=== PATIENT | male | born 1945 | race Caucasian/White ===

== ENCOUNTER → 2016-04-10 | Outpatient (CLI) | payer MEDICARE, OTHER ==
[~2016-04-10] MED LIST: 'KLONOPIN0.5 MG PO; 'PARAFON FORTE500 M1 PO; ALAVERT10 M1 PO; AMOXICOT500 MG PO; ATIVAN0.5 MG PO; AUGMENTIN 875875 MG PO; BACTRIM DS 8001 TA1 PO; BAYER ASPIRIN C81 MG PO; CARVEDILOL3.125 MG PO; CIPRO500 MG PO; CIPROFLOXACIN500 MG PO; CLOPIDOGREL75 MG PO; COREG6.25 MG PO; ESKALITH-CR450 MG PO; FERROUS SULFAT325 MG PO; FINASTERIDE5 MG PO; FLOMAX0.4 MG PO; FUROSEMIDE20 M1 PO; KLONOPIN0.5 MG PO; LASIX20 MG PO; LITHOBID300 M1 PO; LOSARTAN POTASS50 MG PO; LOW DOSE ASPIRI81 MG PO; MIRALAX17 GM PO; NAPROSYN500 MG PO; PERCOCET 325 MG1 TA5 PO; PRAVACHOL40 MG PO; PREDNICOT20 MG PO; PROSCAR5 M1 PO; PROZAC40 M1 PO; UROCIT-K10 MEQ PO; VITAMIN D22000 UNIT PO; VITAMIN D50000 I3 PO; WELLBUTRIN SR200 MG PO; WELLBUTRIN100 M1 PO; ZOFRAN4 MG PO; ZOFRAN8 M1 PO
== END | disposition home or self-care (01) ==
LOC: RAD 13:38
DX: M19.021 Primary osteoarthritis, right elbow (principal); M25.511 Pain in right shoulder; M25.521 Pain in right elbow; M25.421 Effusion, right elbow

== ENCOUNTER → 2016-08-21 | Outpatient (CLI) | payer MEDICARE, OTHER | END | disposition home or self-care (01) | LOC: MRI 13:58 | DX: M19.012 Primary osteoarthritis, left shoulder (principal) ==

== ENCOUNTER → 2017-04-16 | Outpatient (CLI) | payer MEDICARE, OTHER ==
[2017-04-16 11:39] LABS: BUN 21 mg/dl (7-24); CREATININE 1.29 mg/dL (0.70-1.30)
== END ==
LOC: LAB 10:27
PROVIDERS: Psychiatry & Neurology Psychiatry
DX: F31.89 Other bipolar disorder (principal)

== ENCOUNTER 2017-06-03 13:49 | Emergency (ER) | payer MEDICARE, OTHER ==
[~2017-06-03] VITALS: Ht 167.6 cm; Wt 90.7 kg
[2017-06-03 14:28] VITALS: BP 101/59
[2017-06-03 14:35] LABS: BASO % 0.3 % (0.0-1.0); EOS # 0.5 10*3/uL (0.0-0.4); EOS % 3.9 % (1.0-4.0); HEMATOCRIT 36.9 % (42.0-52.0); HEMOGLOBIN 11.9 g/dl (14.0-18.0); LYMPH # 1.6 10*3/uL (1.3-4.4); LYMPH % 12.6 % (27.0-41.0); MEAN CORPUSCULAR HGB 29.7 pg (27.0-31.0); MEAN CORPUSCULAR HGB CONC 32.2 g/dl (33.0-37.0); MEAN PLATELET VOLUME 9.8 fl (9.6-12.3); MONO # 0.8 10*3/uL (0.1-1.0); MONO % 6.5 % (3.0-9.0); NEUT # 9.6 10*3/uL (2.3-7.9); NEUT % 76.2 % (47.0-73.0); PLATELET COUNT AUTOMATED 257 10*3/uL (130-400); RED BLOOD COUNT 4.01 10*6/uL (4.50-5.90); RED CELL DISTRI WIDTH 13.1 % (0-14.5); WHITE BLOOD COUNT 12.6 10*3/uL (4.8-10.8)
[2017-06-03] MEDS ORDERED: PROZAC10 MG PO (14:47)
[2017-06-03 14:49] VITALS: BP 92/44
[2017-06-03 14:57] LABS: ALBUMIN 3.7 gm/dl (3.1-4.5); ALKALINE PHOSPHATASE 155 U/L (45-117); BUN 85 mg/dl (7-24); CHLORIDE 101 mmol/L (98-107); CREATININE 4.28 mg/dL (0.70-1.30); POTASSIUM 4.3 mmol/L (3.5-5.1); SGOT/AST 14 IU/L (3-35); SGPT/ALT 22 U/L (12-78); SODIUM 137 mmol/L (136-145)
[2017-06-03 15:02] LABS: ETHYL ALCOHOL < 3.0 mg/dl (<3)
[2017-06-03 15:24] LABS: TROPONIN I 0.02 ng/ml (<0.045)
[2017-06-03 16:14] LABS: BILIRUBIN NEGATIVE (NEGATIVE); BLOOD NEGATIVE (NEGATIVE); CLARITY CLEAR (CLEAR); COLOR YELLOW (YELLOW); GLUCOSE NEGATIVE (NEGATIVE); KETONE NEGATIVE (NEGATIVE); LEUKO ESTERASE NEGATIVE (NEGATIVE); NITRITE NEGATIVE (NEGATIVE); PH 5.5 (5.0-9.0); SPECIFIC GRAVITY 1.015 (1.005-1.030); UROBILINOGEN 0.2 E.U./dl (0.2-1.0)
[2017-06-03 16:22] LABS: BACTERIA 2+; RBC 0-2 rbc/hpf (0-2); URINE AMPHETAMINES < 1000 (1000ng/ml); URINE BARBITURATES < 200 (200ng/ml); URINE BENZODIAZEPINES < 200 (200ng/ml); URINE CANNABINOIDS (THC) < 50 (50ng/ml); URINE COCAINE < 300 (300ng/ml); URINE METHADONE < 300 (300ng/ml); URINE OPIATES < 300 (300ng/ml); URINE PHENCYCLIDINE < 25 (25ng/ml); WBC 0-2 wbc/hpf (0-5)
[2017-06-03 16:33] VITALS: BP 93/37
[2017-06-03 17:07] VITALS: BP 100/41
[2017-06-03 17:33] VITALS: BP 114/36
== END 2017-06-03 15:44 | disposition short-term general hospital (02) ==
LOC: ED 13:49 → EDHOLD 15:13 → ED 15:13 → 4E 15:25 → EDHOLD 15:25 → 4E 15:25 → ED 15:44
PROVIDERS: Emergency Medicine
DX: R53.83 Other fatigue (principal); T56.891A Toxic effect of other metals, accidental (unintentional), initial encounter; R33.9 Retention of urine, unspecified; F32.9 Major depressive disorder, single episode, unspecified; E86.0 Dehydration; N17.9 Acute kidney failure, unspecified; Z98.890 Other specified postprocedural states; Z79.899 Other long term (current) drug therapy; Z88.1 Allergy status to other antibiotic agents; Z88.8 Allergy status to other drugs, medicaments and biological substances; Z79.82 Long term (current) use of aspirin; Y92.9 Unspecified place or not applicable

== ENCOUNTER 2017-07-18 08:34 | Emergency (ER) | payer MEDICARE, OTHER ==
[~2017-07-18] VITALS: Ht 170.1 cm; Wt 83.0 kg
[2017-07-18 09:08] LABS: BASO % 0.8 % (0.0-1.0); EOS # 0.6 10*3/uL (0.0-0.4); EOS % 12.1 % (1.0-4.0); HEMATOCRIT 32.2 % (42.0-52.0); HEMOGLOBIN 10.3 g/dl (14.0-18.0); LYMPH % 19.7 % (27.0-41.0); MEAN CORPUSCULAR HGB 30.4 pg (27.0-31.0); MEAN PLATELET VOLUME 9.1 fl (9.6-12.3); MONO # 0.4 10*3/uL (0.1-1.0); MONO % 8.1 % (3.0-9.0); NEUT # 3.1 10*3/uL (2.3-7.9); NEUT % 58.9 % (47.0-73.0); PLATELET COUNT AUTOMATED 266 10*3/uL (130-400); RED BLOOD COUNT 3.39 10*6/uL (4.50-5.90); RED CELL DISTRI WIDTH 14.6 % (0-14.5); WHITE BLOOD COUNT 5.2 10*3/uL (4.8-10.8)
[2017-07-18 09:17] LABS: ACT PARTIAL THROMBO TIME 24.4 SECONDS (20.8-31.5)
[2017-07-18 09:18] LABS: CREATININE 1.47 mg/dL (0.70-1.30); POTASSIUM 4.2 mmol/L (3.5-5.1)
== END 2017-07-18 09:56 | disposition home or self-care (01) ==
LOC: ED 08:34
PROVIDERS: Emergency Medicine
DX: L50.8 Other urticaria (principal); Z96.651 Presence of right artificial knee joint; Z98.890 Other specified postprocedural states; Z79.899 Other long term (current) drug therapy; Z79.82 Long term (current) use of aspirin; Z88.1 Allergy status to other antibiotic agents; Z88.8 Allergy status to other drugs, medicaments and biological substances

== ENCOUNTER → 2017-07-18 | Outpatient (CLI) | payer MEDICARE, OTHER ==
[~2017-07-18] MED LIST changes: +PROZAC10 MG PO
== END | disposition home or self-care (01) ==
LOC: LAB 09:00
DX: D64.9 Anemia, unspecified (principal)

== ENCOUNTER → 2017-07-21 | Outpatient (CLI) | payer MEDICARE, OTHER ==
[2017-07-21 10:35] LABS: BASO % 0.7 % (0.0-1.0); EOS # 0.6 10*3/uL (0.0-0.4); EOS % 11.2 % (1.0-4.0); HEMATOCRIT 31.7 % (42.0-52.0); HEMOGLOBIN 10.1 g/dl (14.0-18.0); LYMPH % 16.8 % (27.0-41.0); MEAN CELL VOLUME 93.5 fl (80.0-94.0); MEAN CORPUSCULAR HGB 29.8 pg (27.0-31.0); MEAN CORPUSCULAR HGB CONC 31.9 g/dl (33.0-37.0); MEAN PLATELET VOLUME 8.9 fl (9.6-12.3); MONO # 0.5 10*3/uL (0.1-1.0); MONO % 8.3 % (3.0-9.0); NEUT # 3.5 10*3/uL (2.3-7.9); NEUT % 62.6 % (47.0-73.0); PLATELET COUNT AUTOMATED 250 10*3/uL (130-400); RED BLOOD COUNT 3.39 10*6/uL (4.50-5.90); RED CELL DISTRI WIDTH 14.5 % (0-14.5); WHITE BLOOD COUNT 5.7 10*3/uL (4.8-10.8)
[2017-07-21 11:06] LABS: ALBUMIN 3.4 gm/dl (3.1-4.5); CREATININE 1.41 mg/dL (0.70-1.30); FREE T4 1.15 ng/dl (0.76-1.46); POTASSIUM 4.4 mmol/L (3.5-5.1); TOTAL PROTEIN 7.2 gm/dL (6.4-8.2)
[2017-07-21 11:12] LABS: THYROID STIM HORMONE (HS) 1.7 uIU/ml (0.358-4.75)
[2017-07-21 13:55] LABS: VITAMIN D, 25-HYDROXY 41.6 ng/mL (30-100)
== END | disposition home or self-care (01) ==
LOC: LAB 00:20
PROVIDERS: Internal Medicine
DX: E55.9 Vitamin D deficiency, unspecified (principal); E78.2 Mixed hyperlipidemia; E03.9 Hypothyroidism, unspecified; Z13.1 Encounter for screening for diabetes mellitus; Z13.21 Encounter for screening for nutritional disorder; Z13.220 Encounter for screening for lipoid disorders

== ENCOUNTER → 2017-09-30 | Outpatient (CLI) | payer MEDICARE, OTHER ==
[~2017-09-30] MED LIST changes: +ABILIFY10 MG PO; +ABILIFY5 MG PO; +BENZTROPINE MESY2 MG PO; +COGENTIN0.5 MG PO; +FANAPT1 MG PO; +IRON325 M1 PO; +MIRTAZAPINE15 M2 PO; +PROTONIX40 MG PO; +PROZAC20 MG PO; +RA SENNA PLUS1 EACH PO; +RIVASTIGMINE1 EACH T; +WELLBUTRIN XL150 MG PO
[2017-09-30 09:25] LABS: BASO % 0.7 % (0.0-1.0); EOS # 0.3 10*3/uL (0.0-0.4); EOS % 5.1 % (1.0-4.0); HEMATOCRIT 35.9 % (42.0-52.0); HEMOGLOBIN 11.5 g/dl (14.0-18.0); LYMPH # 1.3 10*3/uL (1.3-4.4); LYMPH % 21.8 % (27.0-41.0); MEAN CORPUSCULAR HGB 30.1 pg (27.0-31.0); MEAN PLATELET VOLUME 9.6 fl (9.6-12.3); MONO # 0.6 10*3/uL (0.1-1.0); MONO % 10.2 % (3.0-9.0); NEUT # 3.6 10*3/uL (2.3-7.9); NEUT % 61.9 % (47.0-73.0); PLATELET COUNT AUTOMATED 205 10*3/uL (130-400); RED BLOOD COUNT 3.82 10*6/uL (4.50-5.90); RED CELL DISTRI WIDTH 13.3 % (0-14.5); WHITE BLOOD COUNT 5.9 10*3/uL (4.8-10.8)
[2017-09-30 09:37] LABS: CREATININE 1.43 mg/dL (0.70-1.30); POTASSIUM 4.6 mmol/L (3.5-5.1)
== END | disposition home or self-care (01) ==
LOC: LAB 08:41
PROVIDERS: Internal Medicine
DX: E03.9 Hypothyroidism, unspecified (principal); E78.2 Mixed hyperlipidemia; Z79.899 Other long term (current) drug therapy

== ENCOUNTER 2017-10-04 08:36 | Emergency (ER) | payer MEDICARE, OTHER ==
[~2017-10-04] VITALS: Wt 72.6 kg
--- NOTE | ~2017-10-04 | EKG ---
[place], [place] ELECTROCARDIOGRAM REPORT NAME: RONALDO GARCIA UNIT #: [id number] ROOM: DOCTOR: EPIPHAD DRAFT REPORT BIRTHDATE: [birth year] [facility] Test Date: 2017-10-04 Test Time: 08:53:49 Pat Name: RONALDO GARCIA Department: Room: Gender: M [employer] Supervisor: EKG.ND : 1945 Requested By: SHLOMO LOZADA Order Number: [id number] Reading MD: Edwin Nye MD Measurements Intervals [place] Rate: 75 P: 67 [place]: 183 QRS: 9 QRSD: 121 T: 221 QT: 425 QTc: 475 Interpretive Statements Sinus rhythm Left bundle branch block Electronically Signed On 10-04-2017 14:28:45 PDT by Edwin Nye MD CM:EKGRPT:ELECTROCARDIOGRAM REPORT [id number] SHLOMO IBARRA DRAFT REPORT SHLOMO LOZADA MD
--- NOTE | ~2017-10-04 | PR ---
[place], [place] PROGRESS NOTE NAME: RONALDO GARCIA [facility] #: [id number] UNIT #: [id number] ROOM: DOCTOR: OLVIN MAN MD BIRTHDATE: [birth year] DOS: 10/06/2017 SUBJECTIVE: The patient is still complaining of poor appetite. OBJECTIVE: VITAL SIGNS: Blood pressure 143/76, heart rate 87 beats per minute, breathing 16 times per minute, temperature 98 degrees Fahrenheit. GENERAL APPEARANCE: The patient is alert and oriented x 3, in no visible distress except for generalized weakness. HEENT AND NECK: Exam within normal limits. CARDIOVASCULAR SYSTEM: Heart rate is regular in rate and rhythm. S1 and S2 normally audible. LUNGS: Clear to auscultation. ABDOMEN: Soft, nontender. No obvious organomegaly. Bowel sounds are present. EXTREMITIES: Without significant cyanosis or edema. IMPRESSION: 1. The patient with swallowing dysfunction to be evaluated by speech therapy. 2. Bipolar disorder with manic episodes off and on. The patient's management was changed to now he is on rivastigmine, mirtazapine, Fanapt. 3. Mixed hyperlipidemia, treated with Lipitor. 4. Chronic constipation, being treated with MiraLax. 5. Benign prostatic hypertrophy and urine retention treated with finasteride and Flomax and is asymptomatic. 6. Generalized weakness and adult failure to thrive. The patient working with physical therapy. 7. Moderate aortic stenosis with compensated cardiac function. 8. Poor appetite. I added Ensure supplements to his treatment. LOVIN MAN MD CM:PNTRANS [id number] OLVIN MAN MD 10/07/17 1404 interface
[~2017-10-04 08:36] MED LIST changes: -ABILIFY10 MG PO; -ABILIFY5 MG PO; -BENZTROPINE MESY2 MG PO; -COGENTIN0.5 MG PO; -FANAPT1 MG PO; -IRON325 M1 PO; -MIRTAZAPINE15 M2 PO; -PROTONIX40 MG PO; -PROZAC20 MG PO; -RA SENNA PLUS1 EACH PO; -RIVASTIGMINE1 EACH T; -WELLBUTRIN XL150 MG PO
[2017-10-04 09:08] LABS: BASO % 0.6 % (0.0-1.0); EOS # 0.3 10*3/uL (0.0-0.4); HEMATOCRIT 32.4 % (42.0-52.0); HEMOGLOBIN 10.3 g/dl (14.0-18.0); LYMPH # 1.5 10*3/uL (1.3-4.4); LYMPH % 27.8 % (27.0-41.0); MEAN CELL VOLUME 93.6 fl (80.0-94.0); MEAN CORPUSCULAR HGB 29.8 pg (27.0-31.0); MEAN CORPUSCULAR HGB CONC 31.8 g/dl (33.0-37.0); MEAN PLATELET VOLUME 8.9 fl (9.6-12.3); MONO # 0.7 10*3/uL (0.1-1.0); MONO % 13.2 % (3.0-9.0); NEUT # 2.8 10*3/uL (2.3-7.9); NEUT % 52.2 % (47.0-73.0); PLATELET COUNT AUTOMATED 174 10*3/uL (130-400); RED BLOOD COUNT 3.46 10*6/uL (4.50-5.90); RED CELL DISTRI WIDTH 13.4 % (0-14.5); WHITE BLOOD COUNT 5.3 10*3/uL (4.8-10.8)
[2017-10-04 09:25] LABS: ALBUMIN 3.5 gm/dl (3.1-4.5); CREATININE 1.53 mg/dL (0.70-1.30); POTASSIUM 3.9 mmol/L (3.5-5.1); TOTAL PROTEIN 6.8 gm/dL (6.4-8.2); TROPONIN I 0.016 ng/ml (<0.045)
[2017-10-04 10:40] LABS: ETHYL ALCOHOL < 3.0 mg/dl (<3)
[2017-10-04 11:08] LABS: BILIRUBIN NEGATIVE (NEGATIVE); BLOOD NEGATIVE (NEGATIVE); CLARITY CLEAR (CLEAR); COLOR YELLOW (YELLOW); GLUCOSE NEGATIVE (NEGATIVE); KETONE TRACE (NEGATIVE); LEUKO ESTERASE NEGATIVE (NEGATIVE); NITRITE NEGATIVE (NEGATIVE); SPECIFIC GRAVITY 1.015 (1.005-1.030); UROBILINOGEN 0.2 E.U./dl (0.2-1.0)
[2017-10-04 11:16] LABS: URINE AMPHETAMINES < 1000 (1000ng/ml); URINE BARBITURATES < 200 (200ng/ml); URINE BENZODIAZEPINES < 200 (200ng/ml); URINE CANNABINOIDS (THC) < 50 (50ng/ml); URINE COCAINE < 300 (300ng/ml); URINE METHADONE < 300 (300ng/ml); URINE OPIATES < 300 (300ng/ml)
[2017-10-04 11:17] LABS: URINE PHENCYCLIDINE < 25 (25ng/ml)
[2017-10-04 11:22] LABS: BACTERIA TRACE; MUCOUS TRACE; RBC 0-2 rbc/hpf (0-2); WBC 0-2 wbc/hpf (0-5)
[2017-10-04] MEDS ORDERED: COGENTIN0.5 MG PO (12:12)
[2017-10-04] MEDS ORDERED: PROZAC20 MG PO ×2 (12:12→12:22)
[2017-10-04] MEDS ORDERED: ABILIFY10 MG PO (12:13)
[2017-10-04] MEDS ORDERED: KLONOPIN0.5 MG PO ×2 (12:14→12:26)
[2017-10-04] MEDS ORDERED: IRON325 M1 PO (12:20)
[2017-10-04] MEDS ORDERED: VITAMIN D22000 UNIT PO (12:20)
[2017-10-04] MEDS ORDERED: MIRALAX17 GM PO (12:23)
[2017-10-04] MEDS ORDERED: ABILIFY5 MG PO (12:23)
[2017-10-04] MEDS ORDERED: PROTONIX40 MG PO (12:24)
[2017-10-04] MEDS ORDERED: RA SENNA PLUS1 EACH PO (12:24)
[2017-10-04] MEDS ORDERED: BENZTROPINE MESY2 MG PO (12:25)
[2017-10-04] MEDS ORDERED: WELLBUTRIN XL150 MG PO (12:30)
== END 2017-10-04 12:30 | disposition admitted as inpatient to this hospital (09) ==
LOC: ED 08:36
PROVIDERS: Emergency Medicine
DX: F30.9 Manic episode, unspecified (principal); Z88.1 Allergy status to other antibiotic agents; Z79.899 Other long term (current) drug therapy; Z79.82 Long term (current) use of aspirin

== ENCOUNTER 2017-10-04 11:54 | Inpatient (IN) | payer MEDICARE, OTHER ==
[~2017-10-04] VITALS: Ht 170.1 cm; Wt 72.6 kg
--- NOTE | ~2017-10-04 | WRIGHTHP ---
[place], [place] PATIENT HISTORY AND PHYSICAL EXAM NAME: RONALDO GARCIA [facility] #: [id number] UNIT #: [id number] ROOM: 317 DOCTOR: NADYA WALTON MD BIRTHDATE: [birth year] DOS: 10/05/2017 INITIAL PSYCHIATRIC EVALUATION CHIEF COMPLAINT: "Oh, good morning. I didn't sleep well." HISTORY OF PRESENT ILLNESS: This is a 71-year-old white male who was sent here on an involuntary basis from [facility]. The patient apparently has a lengthy history of bipolar disorder and has been followed by Dr. Pedersen. Most recently, he had an episode of lithium toxicity requiring his lithium to be discontinued. Following that, he was placed on Abilify, but had an adverse reaction to the Abilify with significant akathisia and swallowing difficulty. Since that time, the patient's mood has spiraled out of control. He has been very manic as well as depressed. He has not been eating well, not sleeping well. Given the severity of his decline, it was felt that an inpatient evaluation was warranted. He is admitted now to rule out any organic factors and attempt to stabilize on medication. PAST MEDICAL HISTORY: Remarkable for chronic kidney disease stage 3, BPH, aortic stenosis, left ventricular hypertrophy, hypertension and abdominal aortic aneurysm and a lengthy history of bipolar disorder. The patient does not drink alcohol, smoke cigarettes or use illicit drugs. STRENGTHS: Ambulatory, good verbal skills and supportive environment. WEAKNESSES: Lengthy history of psychiatric illness and poor coping skills. MENTAL STATUS: He is alert and oriented with gaps. Mood does seem to be labile. Affect inappropriate. He is rather tangential in his thinking and fragmented. He is grossly psychotic and guarded. Short term memory does have gaps. DIAGNOSIS: Bipolar type 1, mixed. PLAN: I will discontinue his PRNs of Haldol and Benadryl. He does seem like he is sensitive to extrapyramidal symptoms, so I will discontinue Seroquel and Zyprexa in lieu of Fanapt 1 mg b.i.d. The extrapyramidal symptom profile of Fanapt is quite favorable, so I do believe this would be something that we can utilize to stabilize his mood without worsening dystonia or akathisia. I will start him on Remeron 15 mg at bedtime to combat the depressive symptoms that are present and also stimulate appetite. We will discontinue Periactin also then to try to simplify his drug regimen. Obtain a swallow evaluation to evaluate, engage in individual and castle milieu activity, returning to the least restrictive environment when psychiatrically stable. [place], [place] PATIENT HISTORY AND PHYSICAL EXAM NAME: RONALDO GARCIA UNIT #: [id number] ROOM: [facility] DOCTOR: NADYA WALTON MD BIRTHDATE: [birth year] NADYA WALTON MD CM:HISPHYS:PATIENT HISTORY AND PHYSICAL EXAMINATION 1005 1028 NADYA WALTON MD 10/05/17 1027 interface
--- NOTE | ~2017-10-04 | DS ---
[place], [place] DISCHARGE SUMMARY NAME: RONALDO GARCIA UNIT #: [id number] ROOM: 317 DOCTOR: NADYA WALTON MD BIRTHDATE: [birth year] DOS: 10/07/2017 CHIEF COMPLAINT: "Oh good morning. I did not sleep well." HISTORY OF PRESENT ILLNESS: This is a 72-year-old white male who was sent here on an involuntary basis from [facility]. The patient apparently has a lengthy history of bipolar disorder and has been followed by Dr. Mcneal. Most recently, he had an episode of lithium toxicity, requiring his lithium to be discontinued. Following that, he was placed on Abilify, but had an adverse reaction to the Abilify with significant akathisia and swallowing difficulty. Since that time, the patient's behavior has spiraled out of control. He has been very manic. He has not been eating or sleeping well. Given the severity of his decompensation, it was felt that inpatient stabilization was warranted. SUMMARY OF HOSPITAL COURSE: The patient was admitted initially to the hospital and was placed on PRNs of Haldol and Benadryl, which were discontinued given his history of sensitivity with extrapyramidal symptoms. I also simplified his drug regimen discontinuing both Seroquel and Zyprexa in lieu of Fanapt 1 mg twice daily. My hope was that the Fanapt would offer a low EPS side effect profile. Additionally, Remeron was utilized at 15 mg a day in order to combat depression, aid sleep, and improve appetite. The patient improved dramatically with this medication combination and did improve significantly to the point where he felt that he was in his euthymic state. He reported no side effects from the medication and felt that this was the best he has felt in some time. He was discharged then home. Mental status at the time of discharge, he is alert and oriented to person, place, and time. Mood was euthymic. Affect appropriate. There is no doug, hypomania or psychosis. Memory for the most part is intact. FINAL DIAGNOSES: Bipolar type 1, mixed. DISPOSITION: The patient is to return home with his , scripts have been e-scribed. He will have followup in the community with Dr. Mcneal. [place], [place] DISCHARGE SUMMARY NAME: RONALDO GARCIA UNIT #: [id number] ROOM: 317 DOCTOR: NADYA WALTON MD BIRTHDATE: [birth year] NADYA WALTON MD CM:AXEL [id number] [id number] NADYA WALTON MD 11/12/17 1007 interface
--- NOTE | ~2017-10-04 | CON ---
[place], [place] REPORT OF CONSULTATION NAME: RONALDO GARCIA UNIT #: [id number] ROOM: 317 DOCTOR: DAVID, PHD OPAL BIRTHDATE: [birth year] DOS: 10/06/2017 HISTORY OF PRESENT ILLNESS: The patient is a 71-year-old male with history of bipolar disorder, chronic kidney disease stage 3 and hypertension who was referred by Dr. Davis due to concerns for cognitive impairment. At the present time, the patient is receiving care on the [facility] at [facility]. He was involuntarily hospitalized due to symptoms of doug and depression. He has a lengthy psychiatric history and has been followed by Dr. Pedersen for many years. His states that he experiences prolonged periods of doug during the summer where he states that for days has pressured speech, is distractible and gives away money. She denied knowledge of prior hallucinations and delusions. SOCIAL HISTORY: The patient is and has 4 children. 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 His states that he has been on SSDI since 2001 due to bipolar disorder. He denied alcohol, tobacco DICTATION ENDS HERE. Yeny Xiong, PhD CM:CONSTR:REPORT OF CONSULTATION 1630 10/07/17 0400 interface
--- NOTE | ~2017-10-04 | CON ---
[place], [place] REPORT OF CONSULTATION [id number] UNIT #: [id number] ROOM: 317 DOCTOR: OLVIN MAN MD BIRTHDATE: [birth year] DOS: 10/04/2017 HISTORY OF PRESENT ILLNESS: The patient is a 71-year-old gentleman with a past medical: 1. History of chronic kidney disease stage 3. 2. BPH and urine retention. 3. Concentric LVH with normal left ventricular ejection fraction. 4. Moderate aortic stenosis, followed by cardiology. 5. Benign essential hypertension. 6. Chronic primary constipation. 7. Abdominal aortic aneurysm. 8. Bipolar disorder with anxiety and depression. The patient is presently admitted at [facility] with recurrent manic episodes, for which multiple medications have been changed, but were not effective. The patient was admitted to Behavioral Health Unit at [facility] under care of Dr. Davis and is presently on Seroquel and Zyprexa. The patient says he is feeling better, but he is having difficulty swallowing off and on with both liquids and solids and that he has poor appetite. No chest pain, no shortness of breath, no GI or urinary symptoms. REVIEW OF SYSTEMS: LUNGS: No increasing shortness of breath. GASTROINTESTINAL: Complaining of difficulty swallowing. CARDIOVASCULAR: No chest pains or palpitations. FAMILY HISTORY: Noncontributory. SOCIAL HISTORY: Denies smoking cigarettes, alcohol, and drug abuse. ALLERGIES: Known allergies to SULFA. PHYSICAL EXAMINATION: GENERAL: Alert and oriented x 3, in no visible distress, generalized weakness. HEENT AND NECK: Extraocular movements are intact. Sclerae are anicteric. Oral mucosa is moist and clean. No obvious facial weakness. Neck is supple without any lymphadenopathy. No thyromegaly. No JVD. No carotid arterial bruits. LUNGS: Clear to auscultation. No wheezing. No rhonchi. CARDIOVASCULAR SYSTEM: Heart rate is regular in rate and rhythm. The patient had S1 and S2 audible and grade 3 systolic ejection murmur heard in all areas of auscultation. ABDOMEN: Soft, nontender. No obvious organomegaly. Bowel sounds are present. No obvious herniation. EXTREMITIES: Without significant cyanosis or edema. Warm to touch. CENTRAL NERVOUS SYSTEM: Alert and oriented x 3. Cranial nerves II-XII are intact. Speech is normal. The patient is able to move all extremities. Normal muscle strength. Deep tendon reflexes are equal on both sides. Plantars were downgoing. [place], [place] REPORT OF CONSULTATION NAME: RONALDO GARCIA [facility] #: [id number] UNIT #: [id number] ROOM: [facility] DOCTOR: OLVIN MAN MD BIRTHDATE: [birth year] LABORATORY DATA: Urinalysis without signs of infection. Urine drug screen was negative. TSH normal. Alcohol nondetectable. CT of the head with no acute process. Chest x-ray with no acute lung disease. BUN and creatinine 34 and 1.5. Hemoglobin 10.3, white cell count of 5300, hemoglobin 11.5. IMPRESSION: 1. The patient with bipolar disorder with recurrent manic episodes, resistant to treatment. Now, the patient is on Zyprexa and Seroquel and Haldol given p.r.n. He appears to be doing better. Dr. Davis is following. 2. Swallowing issues and lack of appetite. I am getting speech therapy to see the patient and I will start him Periactin for appetite. 3. Benign essential hypertension with blood pressure staying on the lower side, stopped his blood pressure medications for now. This is apparently related to poor appetite and hypovolemia. 4. Chronic constipation, treated with MiraLax, Colace. 5. Benign prostatic hypertrophy and urine retention, asymptomatic. The patient is taking finasteride and Flomax. 6. Gastroesophageal reflux disease and esophagitis, asymptomatic with Protonix. 7. Generalized weakness and adult failure to thrive. We will start physical therapy. He is having any difficulty with ambulation. 8. Moderate aortic stenosis, compensated at this time. Thank you, Dr. Davis, for asking me to see the patient. I will follow along with you. OLVIN MAN MD CM:CONSTR:REPORT OF CONSULTATION 1748 10/05/17 0115 interface
--- NOTE | ~2017-10-04 | PR ---
[place], [place] PROGRESS NOTE [id number] #: [id number] ROOM: 317 DOCTOR: OLVIN MAN MD BIRTHDATE: [birth year] DOS: 10/07/2017 SUBJECTIVE: The patient is doing well and being discharged to home by Dr. Davis on patient's family request. He is starting to eat better at the facility. PHYSICAL EXAMINATION: VITAL SIGNS: Blood pressure 138/66, afebrile, heart rate of 94 beats per minute, breathing normally. GENERAL APPEARANCE: The patient is alert and oriented x 3, in no visible distress. HEENT AND NECK: Exam within normal limits. CARDIOVASCULAR SYSTEM: The patient has an ejection murmur in all four auscultation areas, which is loud, grade 4 murmur. LUNGS: Clear to auscultation. ABDOMEN: Soft, nontender. No obvious organomegaly. Bowel sounds are present. EXTREMITIES: Without significant cyanosis or edema. IMPRESSION: 1. The patient with bipolar disorder with manic episodes and did not tolerate psych medications recently, but doing well on Fanapt and Remeron started by Dr. Davis. 2. Swallowing dysfunction evaluated. The patient's swallowing and eating better. Speech therapy are following him. 3. Benign essential hypertension, treated and controlled. 4. Chronic constipation, treated with MiraLax and Colace. The patient is moving bowels regularly. 5. Moderate aortic stenosis with ejection murmur and compensated cardiac function. 6. Generalized weakness and adult failure to thrive. The patient working with physical therapy. OLVIN MAN MD CM:PNTRANS [id number] OLVIN MAN MD 10/07/17 0278 interface
--- NOTE | ~2017-10-04 | PR ---
[place], [place] PROGRESS NOTE NAME: [facility] [id number] UNIT #: [id number] ROOM: 317 DOCTOR: OLVIN MAN MD BIRTHDATE: [birth year] DOS: 10/05/2017 SUBJECTIVE: The patient is feeling better, starting to eat more and his swallowing is getting better. OBJECTIVE: VITAL SIGNS: Blood pressure 148/77, heart rate 89 beats per minute, breathing 18 times per minute, temperature 98 degrees Fahrenheit. GENERAL APPEARANCE: The patient is alert and oriented x 3, in no visible distress. HEENT AND NECK: Exam within normal limits. CARDIOVASCULAR SYSTEM: Heart rate is regular in rate and rhythm. S1 and S2 normally audible. LUNGS: Clear to auscultation. ABDOMEN: Soft, nontender. No obvious organomegaly. Bowel sounds are present. EXTREMITIES: Without significant cyanosis or edema. IMPRESSION: 1. The patient has bipolar disorder, getting manic off and on and not reacting well to the psych medications. He is finally on Fanapt and Remeron and being followed by Dr. Davis. 2. Swallowing dysfunction is being evaluated by Speech Therapy. 3. Benign essential hypertension is being treated and followed. Blood pressures are now reasonably controlled. 4. Chronic constipation, treated and controlled with MiraLax and Colace. 5. Benign prostatic hypertrophy and urine retention is asymptomatic with finasteride and Flomax. 6. Moderate aortic stenosis with compensated cardiac function. 7. Generalized weakness and adult failure to thrive. The patient is working with physical therapy. Situation discussed with the patient and his . OLVIN MAN MD CM:PNTRANS 1251 0009 OLVIN MAN MD 10/06/17 0008 interface
[2017-10-04] MEDS ORDERED: PROZAC20 MG PO ×2 (12:12→12:22)
[2017-10-04] MEDS ORDERED: COGENTIN0.5 MG PO (12:12)
[2017-10-04] MEDS ORDERED: ABILIFY10 MG PO (12:13)
[2017-10-04] MEDS ORDERED: KLONOPIN0.5 MG PO ×2 (12:14→12:26)
[2017-10-04] MEDS ORDERED: IRON325 M1 PO (12:20)
[2017-10-04] MEDS ORDERED: VITAMIN D22000 UNIT PO (12:20)
[2017-10-04] MEDS ORDERED: ABILIFY5 MG PO (12:23)
[2017-10-04] MEDS ORDERED: MIRALAX17 GM PO (12:23)
[2017-10-04] MEDS ORDERED: PROTONIX40 MG PO (12:24)
[2017-10-04] MEDS ORDERED: RA SENNA PLUS1 EACH PO (12:24)
[2017-10-04] MEDS ORDERED: BENZTROPINE MESY2 MG PO (12:25)
[2017-10-04] MEDS ORDERED: WELLBUTRIN XL150 MG PO (12:30)
[2017-10-04 13:06] VITALS: BP 100/48
[2017-10-04 19:56] VITALS: BP 140/58
[2017-10-05 06:27] LABS: BASO % 0.5 % (0.0-1.0); EOS # 0.3 10*3/uL (0.0-0.4); EOS % 5.2 % (1.0-4.0); HEMATOCRIT 33.1 % (42.0-52.0); HEMOGLOBIN 10.5 g/dl (14.0-18.0); LYMPH # 1.7 10*3/uL (1.3-4.4); LYMPH % 27.6 % (27.0-41.0); MEAN CORPUSCULAR HGB 29.8 pg (27.0-31.0); MEAN CORPUSCULAR HGB CONC 31.7 g/dl (33.0-37.0); MEAN PLATELET VOLUME 9.1 fl (9.6-12.3); MONO # 0.6 10*3/uL (0.1-1.0); NEUT # 3.4 10*3/uL (2.3-7.9); NEUT % 56.5 % (47.0-73.0); PLATELET COUNT AUTOMATED 162 10*3/uL (130-400); RED BLOOD COUNT 3.52 10*6/uL (4.50-5.90); RED CELL DISTRI WIDTH 13.3 % (0-14.5)
[2017-10-05 06:51] LABS: ALBUMIN 3.2 gm/dl (3.1-4.5); ALKALINE PHOSPHATASE 99 U/L (45-117); BUN 29 mg/dl (7-24); CHLORIDE 106 mmol/L (98-107); CHOLESTEROL 107 mg/dL (<200); CREATININE 1.32 mg/dL (0.70-1.30); HDL CHOLESTEROL 32 mg/dl (40-60); LDL CHOLESTEROL 58 mg/dL (9-159); POTASSIUM 3.9 mmol/L (3.5-5.1); SGOT/AST 20 IU/L (3-35); SGPT/ALT 46 U/L (12-78); SODIUM 141 mmol/L (136-145); TOTAL PROTEIN 6.5 gm/dL (6.4-8.2); TRIGLYCERIDES 87 mg/dl (<150); VLDL CHOLESTEROL 17 mg/dL (6-40)
[2017-10-05 07:54] VITALS: BP 148/77
[2017-10-05 09:06] LABS: VITAMIN D, 25-HYDROXY 49.3 ng/mL (30-100)
[2017-10-05 20:27] VITALS: BP 129/59
[2017-10-06 07:56] VITALS: BP 135/67
[2017-10-06 20:15] VITALS: BP 143/76
[2017-10-07 08:26] VITALS: BP 138/66
[2017-10-07] MEDS ORDERED: RIVASTIGMINE1 EACH T (10:57)
[2017-10-07] MEDS ORDERED: FANAPT1 MG PO (10:57)
[2017-10-07] MEDS ORDERED: MIRTAZAPINE15 M2 PO (10:57)
== END 2017-10-07 13:45 | disposition home or self-care (01) | DRG 885 ==
LOC: 3N 11:54
PROVIDERS: Psychiatry & Neurology Psychiatry
DX: F31.12 Bipolar disorder, current episode manic without psychotic features, moderate (principal); R13.10 Dysphagia, unspecified; I35.0 Nonrheumatic aortic (valve) stenosis; N18.3 Chronic kidney disease, stage 3 (moderate); I12.9 Hypertensive chronic kidney disease with stage 1 through stage 4 chronic kidney disease, or unspecified chronic kidney disease; R62.7 Adult failure to thrive; K59.09 Other constipation; K21.0 Gastro-esophageal reflux disease with esophagitis; N40.1 Benign prostatic hyperplasia with lower urinary tract symptoms; R33.8 Other retention of urine; G31.84 Mild cognitive impairment of uncertain or unknown etiology; F41.9 Anxiety disorder, unspecified; Z88.2 Allergy status to sulfonamides; Z79.899 Other long term (current) drug therapy

== ENCOUNTER 2018-01-11 10:00 | Emergency (ER) | payer MEDICARE, OTHER ==
[~2018-01-11] VITALS: Ht 170.1 cm; Wt 66.7 kg
[~2018-01-11 10:00] MED LIST changes: +ABILIFY10 MG PO; +ABILIFY5 MG PO; +BENZTROPINE MESY2 MG PO; +COGENTIN0.5 MG PO; +FANAPT1 MG PO; +IRON325 M1 PO; +MIRTAZAPINE15 M2 PO; +PROTONIX40 MG PO; +PROZAC20 MG PO; +RA SENNA PLUS1 EACH PO; +RIVASTIGMINE1 EACH T; +WELLBUTRIN XL150 MG PO
== END 2018-01-11 13:50 | disposition home or self-care (01) ==
LOC: ED 10:00
DX: K59.00 Constipation, unspecified (principal); Z88.8 Allergy status to other drugs, medicaments and biological substances; Z88.2 Allergy status to sulfonamides; Z79.899 Other long term (current) drug therapy; Z79.82 Long term (current) use of aspirin

== ENCOUNTER → 2018-02-09 | Outpatient (CLI) | payer MEDICARE, OTHER | LOC: CARD 13:51 | DX: I42.8 Other cardiomyopathies (principal); I35.0 Nonrheumatic aortic (valve) stenosis; I05.0 Rheumatic mitral stenosis; R01.1 Cardiac murmur, unspecified ==

== ENCOUNTER 2019-01-03 12:36 | Inpatient (IN) | payer MEDICARE, OTHER ==
[~2019-01-03] VITALS: Ht 170.1 cm; Wt 56.7 kg
--- NOTE | ~2019-01-03 | O ---
[place], [place] OPERATIVE NOTE NAME: RONALDO GARCIA [facility] #: [id number] UNIT #: [id number] ROOM: 410 DOCTOR: CHACE TREVINO MD BIRTHDATE: [birth year] DOS: 01/05/2019 GASTROENDOSCOPIC REPORT INDICATIONS: A 73-year-old patient who has presented with chief complaint of anorexia, dysphagia or weight loss, undergoing investigation. PROCEDURE: Today's procedure part of investigation, panendoscopy and colonoscopy. PREMEDICATION: Propofol. SCOPE: Olympus forward-viewing gastroscope Q10 video. REPORT: After putting the patient in left lateral position and application of lubricant to the scope, the scope was introduced. Thereafter, under direct visualization, advanced through the length of esophagus without difficulty. Benign esophageal stricture was noticed. Bile reflux gastritis seen and antral biopsy was obtained. Duodenal bulb within normal limits. Balloon size 19 was utilized and esophagus was dilated to size 19. The patient extubated, tolerated the procedure well. IMPRESSION: Benign esophageal stricture and bile reflux gastritis, status post biopsy. PLAN AND DISCUSSION: His appetite can be stimulated with Marinol 2.5 mg b.i.d., Protonix 40 mg daily, antireflux with elevation of the head of the bed. He is status post esophageal dilation. Soft diet is going to be tried. We are going to proceed with colonoscopy. CHACE TREVINO MD CM:OPRECORD:OPERATIVE NOTE 1324 1413 CHACE TREVINO MD 01/19/19 0750 interface
--- NOTE | ~2019-01-03 | WRIGHTHP ---
[place], [place] PATIENT HISTORY AND PHYSICAL EXAM NAME: RONALDO GARCIA [facility] #: [id number] UNIT #: [id number] ROOM: 410 DOCTOR: OLVIN MAN MD BIRTHDATE: [birth year] DOS: 01/03/2019 HISTORY OF PRESENT ILLNESS: The patient is a 73-year-old female with a past medical history of; 1. Advanced adult failure to thrive. 2. Chronic kidney disease stage 3. 3. History of BPH and urinary retention. 4. Contrast concentric LVH with normal left ventricular ejection fraction. 5. Bipolar disorder with anxiety and depression. 6. Major depression, recurrent, severe. 7. Chronic primary constipation. 8. Abdominal aortic aneurysm. 9. Benign essential hypertension. 10. Moderate aortic stenosis followed by Cardiology. The patient presented to the Emergency Department with severe adult failure to thrive, unable to ambulate and had an episode of chest pressure lasting several minutes. No dizziness or fainting episode. No GI or urinary symptoms, but the patient progressively getting weaker and has no appetite. He feels depressed. SYSTEMS REVIEW: RESPIRATORY: No increasing shortness of breath. GENERAL: The patient has very poor appetite, not eating much and has previous history of esophageal stenosis with dilatation. CARDIOVASCULAR: One episode of chest pain. FAMILY HISTORY: Noncontributory. ALLERGIES: Known allergies to BACTRIM and LAMICTAL. PHYSICAL EXAMINATION: GENERAL APPEARANCE: Alert and oriented x 3, in no visible distress, cachectic with severe muscle wasting and weight loss and generalized weakness. VITAL SIGNS: Blood pressure 126/56, heart rate 70 beats per minute, breathing 17 times per minute, temperature 98.3 degrees Fahrenheit. HEENT AND NECK: Extraocular movements are intact. Sclerae are anicteric. Oral mucosa is moist and clean. No obvious facial weakness. Neck is supple without any lymphadenopathy. No thyromegaly. No JVD. No carotid arterial bruits. LUNGS: Clear to auscultation. No wheezing. No rhonchi. CARDIOVASCULAR SYSTEM: Heart rate is regular in rate and rhythm. S1 and S2 normally audible. No significant murmur or any other abnormal cardiac sounds. ABDOMEN: Soft, nontender. No obvious organomegaly. Bowel sounds are present. No obvious herniation. EXTREMITIES: Without significant cyanosis or edema. Warm to touch. CENTRAL NERVOUS SYSTEM: Alert and oriented x 3. Cranial nerves II-XII are intact. Speech is normal. The patient is able to move all extremities. Normal muscle strength. Deep tendon reflexes are equal on both sides. Plantars were downgoing. LABORATORY DATA: Chest x-ray without acute abnormality. Normal serum electrolytes. Albumin level, borderline low normal at 3.1, hemoglobin 9.4. [place], [place] PATIENT HISTORY AND PHYSICAL EXAM [facility]: [facility] [id number] UNIT #: [id number] ROOM: 410 DOCTOR: OLVIN MAN MD BIRTHDATE: [birth year] IMPRESSION: 1. Advanced adult failure to thrive with cachexia, muscle wasting, difficulty with ambulating to be started on physical therapy and sent for rehabilitation. 2. The patient with significant weight loss, no appetite and had previous problem with severe weight gain with Depakote, so I will start him on a small dose of Depakote to help him improve his appetite and I am also getting Dr. Davis, the psychiatrist, to see him. 3. Severe depression, recurrent, severe, to be followed and treated by Dr. Davis normally sees Dr. Pedersen as an outpatient. 4. Benign prostatic hypertrophy and urine retention. I will continue treatment. He has no urinating issues presently on Flomax and Proscar. 5. Chronic constipation, treated and controlled. 6. Chronic kidney disease stage 3, stable. OLVIN MAN MD CM:HISPHYS:PATIENT HISTORY AND PHYSICAL EXAMINATION 99 50 OLVIN MAN MD 01/03/191650 interface
--- NOTE | ~2019-01-03 | DS ---
[place], [place] DISCHARGE SUMMARY NAME: RONALDO GARCIA [facility] #: [id number] UNIT #: [id number] ROOM: 410 DOCTOR: OLVIN MAN MD BIRTHDATE: [birth year] DOS: 01/07/2019 DISCHARGE DIAGNOSES: 1. Esophageal stricture, status post dilatation. 2. Barium enema showing tortuous colon. 3. Adult failure to thrive, cachexia, weight loss, muscle wasting, generalized weakness and loss of appetite, now improving with Depakote. 4. Major depression, recurrent, severe. The patient on Pristiq, doing well. 5. Benign prostatic hypertrophy and urine retention. 6. Chronic constipation. 7. Chronic kidney disease stage 3. 8. Advanced adult failure to thrive. 9. Moderate aortic stenosis followed by Cardiology. 10. Benign essential hypertension. 11. Abdominal aortic aneurysm. 12. Chronic primary constipation. 13. Bipolar disorder with anxiety and depression. 14. Concentric left ventricular hypertrophy with normal left ventricular ejection fraction. HOSPITAL COURSE: 1. The patient presented to the Emergency Department and unable to eat. Generalized weakness, unable to ambulate properly and health declining along with weight loss. The patient was found to have esophageal stenosis, which was dilated. 2. Significant weight loss. The patient restarted on Depakote, which had caused major weight gain in the past. At this time on a small dose to improve his appetite because it had worked with him in the past. 3. Bipolar disorder, now being treated with Depakote. The patient also takes Pristiq and was reevaluated by Dr. Davis. 4. Generalized anxiety disorder, treated and controlled with clonazepam. 5. Benign prostatic hypertrophy and urinary retention, asymptomatic with Flomax and Proscar. 6. Major depression, recurrent, severe, now being treated with Pristiq. The patient is responding well, is being followed by Dr. Davis. His Prozac and Wellbutrin were stopped. 7. Chronic constipation, being followed and treated with laxatives. The patient is moving his bowels. 8. Chronic kidney disease, stage 3, stable. LABORATORY DATA: CT of the abdomen and pelvis showed a left flank hematoma, otherwise, no acute process. Hemoglobin 8.8, white cell count of 6400. DISCHARGE MANAGEMENT: Pristiq 50 mg a day, finasteride 5 mg daily, Protonix 40 mg a day, Depakote extended release 250 mg a day. Regular diet, sennoside A and B 17.2 mg daily, Coreg 6.25 mg b.i.d., Flomax 0.8 mg at bedtime, clonazepam 0.5 mg t.i.d. p.r.n. for anxiety. [place], [place] DISCHARGE SUMMARY NAME: RONALDO GARCIA UNIT #: [id number] ROOM: 410 DOCTOR: OLVIN MAN MD BIRTHDATE: [birth year] OLVIN MAN MD CM:DISCHARG 1215 [id number] OLVIN MAN MD 01/07/19 1319 interface
--- NOTE | ~2019-01-03 | EKG ---
[place], [place] ELECTROCARDIOGRAM REPORT NAME: RONALDO GARCIA UNIT #: [id number] ROOM: 410 DOCTOR: STACEY DRAFT REPORT BIRTHDATE: [address] [facility] Test Date: 2019-01-03 Test Time: 18:32:24 Pat Name: RONALDO GARCIA Department: Room: 410 Gender: M Director Of Veterans Affairs: SS RESP : 1945 Requested By: GERSON IRVING Order Number: [id number] Reading MD: Kurt Alejandra MD Measurements Intervals [place] Rate: 72 P: 50 NE: 195 QRS: 22 QRSD: 144 T: -65 QT: 453 QTc: 496 Interpretive Statements Sinus rhythm IVCD, consider atypical LBBB Nonspecific ST changes Electronically Signed On 01-04-2019 4:56:28 PDT by Kurt Alejandra MD CM:EKGRPT:ELECTROCARDIOGRAM REPORT [id number] GERSON IBARRA DRAFT REPORT GERSON IRVING M.D.
--- NOTE | ~2019-01-03 | PR ---
[place], [place] PROGRESS NOTE NAME: RONALDO GARCIA [facility] #: [id number] UNIT #: [id number] ROOM: 410 DOCTOR: OLVIN MAN MD BIRTHDATE: [birth year] DOS: 01/05/2019 SUBJECTIVE: The patient undergoing EGD and colonoscopy evaluation for loss of appetite and persistent weight loss. OBJECTIVE: VITAL SIGNS: Blood pressure 130/64, heart rate of 84 beats per minute, breathing 20 times per minute, temperature 98 degrees Fahrenheit. GENERAL APPEARANCE: The patient is alert and oriented x 3, in no visible distress, generalized muscle wasting and weakness. HEENT AND NECK: Exam within normal limits. CARDIOVASCULAR SYSTEM: Heart rate is regular in rate and rhythm. S1 and S2 normally audible. LUNGS: Clear to auscultation. ABDOMEN: Soft, nontender. No obvious organomegaly. Bowel sounds are present. EXTREMITIES: Without significant cyanosis or edema. IMPRESSION: 1. The patient with adult failure to thrive, cachexia, weight loss, muscle wasting and weakness and loss of appetite and undergoing GI evaluation by Dr. Mathews including undergoing EGD and colonoscopy. 2. Weight loss, no appetite. The patient started on Depakote with which she had gained appetite and weight in the past. 3. Major depression, recurrent, severe, to be treated with Pristiq as recommended by Dr. Davis. The patient's Prozac and Wellbutrin were stopped. 4. Benign prostatic hypertrophy and urinary retention, treated and controlled. The patient is on Flomax and Proscar. 5. Chronic constipation, treated and controlled with laxatives. 6. Chronic kidney disease, stage 3. 7. Advanced adult failure to thrive. The patient is waiting to go to rehab. OLVIN MAN MD CM:PNTRANS 1052 2 OLVIN MAN MD 01/06/19121 interface
--- NOTE | ~2019-01-03 | O ---
[place], [place] OPERATIVE NOTE [id number] UNIT #: [id number] ROOM: 410 DOCTOR: BELINDA ROSA,CHACE BIRTHDATE: [birth year] DOS: 01/05/2019 GASTROENDOSCOPIC REPORT Today's procedure part of investigation: Abdominal pain, constipation, weight loss is colonoscopy. PREMEDICATION: Propofol. SCOPE: Olympus forward-viewing colonoscope 10L video. DESCRIPTION OF PROCEDURE: After putting the patient in left lateral position and application of lubricant to the scope, the scope was introduced. Thereafter, under direct visualization, advanced through the length of colon with difficulty. Difficulty was secondary to retained liquid stool throughout the entire colon and tortuosity colon in addition. Numerous lavage was done as much as possible. The scope was advanced and scope was withdrawn from ascending, transverse, descending colon. The patient extubated, tolerated the procedure well. IMPRESSION: Retained stool, tortuous colon. PLAN AND DISCUSSION: We are going to proceed with feeding the patient and see if we can have some improvement in his weight, status post addition of Ensure before meals. CHACE TREVINO MD CM:OPRECORD:OPERATIVE NOTE 1324 1418 CHACE TREVINO MD 01/19/19 0750 interface
--- NOTE | ~2019-01-03 | PR ---
[place], [place] PROGRESS NOTE NAME: RONALDO GARCIA [facility] #: [id number] UNIT #: [id number] ROOM: 410 DOCTOR: OLVIN MAN MD BIRTHDATE: [birth year] DOS: 01/06/2019 SUBJECTIVE: The patient is status post esophageal dilatation. The GI workup is still not Complete. OBJECTIVE: GENERAL APPEARANCE: The patient is alert and oriented x 3, in no visible distress. VITAL SIGNS: Blood pressure 118/52, heart rate 81 beats per minute, breathing 18 times per minute, temperature 98.3 degrees Fahrenheit. HEENT AND NECK: Exam within normal limits. CARDIOVASCULAR SYSTEM: Heart rate is regular in rate and rhythm. S1 and S2 normally audible. LUNGS: Clear to auscultation. ABDOMEN: Soft, nontender. No obvious organomegaly. Bowel sounds are present. EXTREMITIES: Without significant cyanosis or edema. IMPRESSION: 1. The patient with adult failure to thrive, cachexia, weight loss, muscle wasting and loss of appetite, getting a GI evaluation by Dr. Mathews which is still not complete. 2. Esophageal stricture and esophageal dilatation yesterday. 3. Tortuous colon and retained stool on colonoscopy, which is to be repeated today after better and repeat prep. 4. Major depression, recurrent, mild, being treated with Pristiq now. Prozac and Wellbutrin were stopped. Dr. Davis is following. 5. Benign prostatic hypertrophy and urine retention, asymptomatic with Flomax and Proscar. 6. Chronic constipation, treated with laxatives. 7. Chronic kidney disease stage 3. 8. Advanced adult failure to thrive. The patient working with physical therapy and waiting for transfer to rehab after GI workup is complete. OLVIN MAN MD CM:PNTRANS 1052 6 OLVIN MAN MD 01/07/19126 interface
--- NOTE | ~2019-01-03 | EKG ---
[place], [place] ELECTROCARDIOGRAM REPORT NAME: RONALDO GARCIA UNIT #: [id number] ROOM: 410 DOCTOR: STACEY DRAFT REPORT BIRTHDATE: [birth year] [facility] Test Date: 2019-01-03 Test Time: 12:39:52 Pat Name: RONALDO GARCIA Department: Room: 410 Gender: M Student Counselor: : 1945 Requested By: GERSON IRVING Order Number: [id number] Reading MD: Kurt Alejandra MD Measurements Intervals [place] Rate: 71 P: 116 LA: 193 QRS: 34 QRSD: 138 T: 3 QT: 486 QTc: 529 Interpretive Statements Sinus rhythm IVCD, consider atypical LBBB Compared to ECG 07/29/2018 18:51:04 No significant changes Electronically Signed On 01-04-2019 4:52:37 PDT by Kurt Alejandra MD CM:EKGRPT:ELECTROCARDIOGRAM REPORT [id number] GERSON IBARRA DRAFT REPORT GERSON IRVING M.D.
--- NOTE | ~2019-01-03 | CON ---
[place], [place] REPORT OF CONSULTATION [id number] UN[facility] #: [id number] ROOM: 410 DOCTOR: PHD DAVID OPAL BIRTHDATE: [birth year] DOS: 01/04/2019 HISTORY OF PRESENT ILLNESS: The patient is a 73-year-old male referred by Dr. Beckwith due to depression. At the present time, the patient is on the 4th floor at [facility]. The patient presented to the ED with adult failure to thrive, trouble walking and chest pressure. He has a history of bipolar [address] disorder [address] follows with [address]. Pedersen. He is and lives with his . 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 He denied alcohol, tobacco and illegal drug use. PAST MEDICAL HISTORY: Advanced adult failure to thrive, chronic kidney disease stage III, history of BPH and urinary retention, contrast concentric LVH with normal left ventricular ejection fraction, bipolar disorder, anxiety, chronic primary constipation, abdominal aortic aneurysm, benign essential hypertension, moderate aortic stenosis. MEDICATIONS: Wellbutrin, Proscar, Protonix, Depakote ER, Senokot, Prozac, Coreg, Flomax. Klonopin. PHYSICAL EXAMINATION: The patient was sitting comfortably, in no apparent distress. He was awake, alert and oriented to person, place and generally to time. Mood was depressed. Affect was blunted. He denied suicidal and homicidal ideation, plan, and intent. He states that he has no appetite and has been having difficulty eating, which he attributes to his dentures. He struggles to find motivation to make changes in his life and he is not sleeping well. Speech and language are within normal limits conversationally. Short-term memory gaps were apparent in conversation. Thought process was linear and goal directed. There is no evidence of hallucinations or delusions. The patient was to have an appointment with his psychiatrist the day of his admission, but felt that he needed to address his medical needs first and came to the hospital. The patient states that his psychiatrist was planning on starting him on Pristiq if his mood was unchanged from the last appointment. DIAGNOSIS: Bipolar 1 disorder. RECOMMENDATIONS: I spoke with Dr. Davis about the patient. He recommended stopping Wellbutrin and Prozac as both can cause weight loss. He is recommending to keep the Depakote as prescribed by Dr. Beckwith. Dr. Davis stated that Pristiq could be a good option for this patient as well. He plans to continue to follow up with his outpatient psychiatric providers upon discharge. Thank you very much for this consult. [place], [place] REPORT OF CONSULTATION NAME: RONALDO GRACIA UNIT #: [id number] ROOM: 410 DOCTOR: DAVID, PHD OPAL BIRTHDATE: [birth year] Yeny Xiong PhD CM:CONSTR:REPORT OF CONSULTATION 1712 01/05/19 0339 interface
--- NOTE | ~2019-01-03 | EKG ---
[place], [place] ELECTROCARDIOGRAM REPORT NAME: RONALDO GARCIA UNIT #: [id number] ROOM: 410 DOCTOR: STACEY DRAFT REPORT BIRTHDATE: [birth year] [facility] Test Date: 2019-01-03 Test Time: 16:07:23 Pat Name: RONALDO GARCIA Department: Room: 410 Gender: M Cotton Grader: SS RESP : 1945 Requested By: GERSON IRVING Order Number: [id number] Reading MD: Kurt Alejandra MD Measurements Intervals [place] Rate: 70 P: 78 [place]: 188 QRS: 24 QRSD: 147 T: 61 QT: 528 QTc: 570 Interpretive Statements Sinus rhythm IVCD, consider atypical LBBB Compared to ECG 07/29/2018 18:51:04 No significant changes Electronically Signed On 01-04-2019 4:54:36 PDT by Kurt Alejandra MD CM:EKGRPT:ELECTROCARDIOGRAM REPORT [id number] GERSON IBARRA DRAFT REPORT GERSON IRVING M.D.
--- NOTE | ~2019-01-03 | CON ---
[place], [place] REPORT OF CONSULTATION NAME[facility] [id number] UNIT #: [id number] ROOM: 410 DOCTOR: JIMENA TREVINO MDMAGDYQUIANA BIRTHDATE: [birth year] DOS: 01/03/2019 GASTROENDOSCOPIC CONSULTATION HISTORY OF PRESENT ILLNESS: This is a 73-year-old patient, who has presented with major depression and anorexia. He complains that his is telling me that he has lost about 30 pounds since last year. He has been on high protein shakes at home and this has not done as well. The patient had studies done apparently as outpatient, last year. He never followed up. PAST MEDICAL HISTORY: Associated weight loss, depression, failure to thrive, constipation, and aortic stenosis. ALLERGIES: No known medication. FAMILY HISTORY: Noncontributory. SOCIAL HISTORY: Nonsmoker, nonalcohol consumer. PAST SURGICAL HISTORY: Right knee prosthesis, hernia repairs. REVIEW OF SYSTEMS: HEENT: Denies double vision, blurred vision. RESPIRATORY: Admits some shortness of breath. CARDIOVASCULAR: Denies chest pain. DIGESTIVE SYSTEM: Anorexia and constipation. PHYSICAL EXAMINATION: GENERAL: Frail patient. HEENT: Head normocephalic, nontraumatic. Mouth and buccal mucosa benign. NECK: Supple, no thyromegaly. CHEST: Symmetric anatomy, decreased air entry in general. HEART: Normal sinus rhythm, no gallop; however, grade 3/6 systolic murmur. Aortic stenosis was noticed. ABDOMEN: Soft. No hepato-organomegaly. Bowel sounds present. Small ventral hernia was noticed. EXTREMITIES: Dry. No cyanosis, no pedal edema. NEUROLOGIC: Alert and oriented. Family present at bedside. LABORATORY DATA: Reviewed. Records reviewed. White blood cell 7, H and H of 9 and 27, platelet count 230. INR 1.0. Comprehensive metabolic panel: GFR greater than 60. Electrolytes balanced. Liver function tests normal. Magnesium 2.2. Troponin normal. Chest x-ray, no radiologic evidence of respiratory distress. Troponin has been repeatedly normal. IMPRESSION: Weight loss, anorexia, major depression, benign prostatic hypertrophy, and renal insufficiency history in past. PLAN AND DISCUSSION: We are going to organize EGD and colonoscopy for Thursday. We are going to make sure that he is not on blood thinners from this [place], [place] REPORT OF CONSULTATION NAME: RONALDO GARCIA UNIT #: [id number] ROOM: 410 DOCTOR: CHACE TREVINO MD BIRTHDATE: [birth year] stage forward and workup in progress to perhaps find the etiology for anorexia, anemia, and weight loss, ruling out occult malignancy. CHACE TREVINO MD CM:CONSTR:REPORT OF CONSULTATION 1825 01/19/19 0748 interface
[~2019-01-03 12:36] MED LIST changes: +MACROBID100 M1 PO
[2019-01-03 12:49] VITALS: BP 110/53
[2019-01-03 12:51] LABS: BASO % 0.4 % (0.0-1.0); EOS # 0.2 10*3/uL (0.0-0.4); EOS % 3.3 % (1.0-4.0); HEMATOCRIT 27.9 % (42.0-52.0); HEMOGLOBIN 9.4 g/dl (14.0-18.0); LYMPH # 0.8 10*3/uL (1.3-4.4); LYMPH % 11.5 % (27.0-41.0); MEAN CELL VOLUME 97.6 fl (80.0-94.0); MEAN CORPUSCULAR HGB 32.9 pg (27.0-31.0); MEAN CORPUSCULAR HGB CONC 33.7 g/dl (33.0-37.0); MEAN PLATELET VOLUME 8.9 fl (9.6-12.3); MONO # 0.6 10*3/uL (0.1-1.0); MONO % 7.8 % (3.0-9.0); NEUT # 5.5 10*3/uL (2.3-7.9); NEUT % 76.6 % (47.0-73.0); PLATELET COUNT AUTOMATED 238 10*3/uL (130-400); RED BLOOD COUNT 2.86 10*6/uL (4.50-5.90); RED CELL DISTRI WIDTH 13.3 % (0-14.5); WHITE BLOOD COUNT 7.2 10*3/uL (4.8-10.8)
[2019-01-03 13:03] LABS: ACT PARTIAL THROMBO TIME 26.2 SECONDS (20.0-32.1)
[2019-01-03 13:07] LABS: ALBUMIN 3.1 gm/dl (3.1-4.5); ALKALINE PHOSPHATASE 103 U/L (45-117); BUN 33 mg/dl (7-24); CHLORIDE 103 mmol/L (98-107); POTASSIUM 4.4 mmol/L (3.5-5.1); SGOT/AST 15 IU/L (3-35); SGPT/ALT 40 U/L (12-78); SODIUM 136 mmol/L (136-145); TOTAL PROTEIN 6.6 gm/dL (6.4-8.2)
[2019-01-03 13:08] LABS: TROPONIN I 0.015 ng/ml (<0.045)
[2019-01-03] MEDS ORDERED: BUPROPION HYDR150 M4 PO (13:16)
[2019-01-03] MEDS ORDERED: FLUOXETINE HYDR20 M1 PO (13:16)
[2019-01-03] MEDS ORDERED: RA SENNA PLUS1 EACH PO (13:17)
[2019-01-03] MEDS ORDERED: CENTRUM MEN'S1 EACH PO (13:18)
[2019-01-03 14:46] VITALS: BP 126/56
--- NOTE | 2019-01-03 15:00 | NUR ---
A 73, admitted to , under the services of Dr. DONOVAN ROSA,OLVIN Duarte with a diagnosis of DYSPHAGIA, FAILURE TO THRIVE, GENERALIZED WEAKNESS. Chief complaint is DIFFICULTY SWALLOWING, FATIGUE, INABILITY TO AMBULATE. Patient arrived via bed from ER. Monitor applied. Initial assessment completed. Vital signs taken and recorded. DR. DONOVAN ROSA,OLVIN Duarte notified of admission to the unit. Orders received. See assessment for past medical history, medications and allergies. Patient and/or family oriented to unit. [facility] Clothing/patient valuable form completed. NIALL QUAN
[2019-01-03] MEDS ORDERED: CLONAZEPAM0.5 M1 PO (15:47)
[2019-01-03 16:00] VITALS: BP 136/69
--- NOTE | 2019-01-03 16:30 | NUR ---
NOTIFIED 3NORTH OF CONSULT AND NOTIFIED OF NEW CONSULT - ORDERED TO HAVE EGD/DILITATION ON THURSDAY.
[2019-01-03 20:00] VITALS: BP 142/58
--- NOTE | 2019-01-03 20:30 | NUR ---
PATIENT INTO BATHROOM WITH PA AND STRAIGHT CATHED SELF. PA DID NOT KNOW TO MEASURE OUTPUT. SAID AT LEAST 600CC OUT GUESSING. TOLD HER THE IMPORTANCE OF MEASURING. WILL CONTINUE TO MONITOR.
[2019-01-04] VITALS: BP 123/59
--- NOTE | 2019-01-04 01:57 | NUR ---
PATIENT MEDICATED WITH KLONOPIN FOR COMPLAINTS OF ANXIETY. WILL CONTINUE TO MONITOR. CALL LIGHT IN REACH.
[2019-01-04 06:04] LABS: CHLORIDE 102 mmol/L (98-107); CREATININE 0.89 mg/dL (0.70-1.30); POTASSIUM 4.1 mmol/L (3.5-5.1); SODIUM 134 mmol/L (136-145)
[2019-01-04 06:14] LABS: BASO % 0.5 % (0.0-1.0); EOS # 0.3 10*3/uL (0.0-0.4); HEMATOCRIT 26.1 % (42.0-52.0); HEMOGLOBIN 8.8 g/dl (14.0-18.0); LYMPH # 1.3 10*3/uL (1.3-4.4); LYMPH % 20.5 % (27.0-41.0); MEAN CELL VOLUME 95.3 fl (80.0-94.0); MEAN CORPUSCULAR HGB 32.1 pg (27.0-31.0); MEAN CORPUSCULAR HGB CONC 33.7 g/dl (33.0-37.0); MEAN PLATELET VOLUME 9.2 fl (9.6-12.3); MONO # 0.6 10*3/uL (0.1-1.0); MONO % 9.6 % (3.0-9.0); NEUT # 4.1 10*3/uL (2.3-7.9); NEUT % 64.1 % (47.0-73.0); PLATELET COUNT AUTOMATED 233 10*3/uL (130-400); RED BLOOD COUNT 2.74 10*6/uL (4.50-5.90); RED CELL DISTRI WIDTH 13.3 % (0-14.5); WHITE BLOOD COUNT 6.4 10*3/uL (4.8-10.8)
[2019-01-04 06:21] LABS: BUN 23 mg/dl (7-24)
[2019-01-04 08:00] VITALS: BP 132/64
--- NOTE | 2019-01-04 08:30 | NUR ---
Electronics Assembler And Tester in to talk to patient. Patient states lives at home with his . There are 3 steps in the home. Physician: Dr. Aditi Tavarez [facility]: [facility] Patient's level of ADLs: MINIMAL ASSIST Patient has working utilities: yes DME: dmitriy Follow-up physician's appointment after d/c: he prefers to make his own follow up appt after discharge Does patient want to access PORTAL?: no Discharge plan discussed with patient. He lives at home with his . He needs assistance with his ADLs and ambulates with a walker. He states he is having difficulty in picking up a jug of milk or walking up steps. Discussed short term SNF and he would like his to be included. She will be here sometime today. Discharge plan undecided at this time. Will follow up at a later time to discuss further with patient and his . COREY HILARIO
--- NOTE | 2019-01-04 10:35 | NUR ---
PHYSICAL THERAPY Physical evaluation attempted but Pt with nursing. Will attempt later. Thank you Franchesca Anderson, PT, DPT
--- NOTE | 2019-01-04 11:45 | NUR ---
Field Supervisor in to see if was available. She is not here but will be coming between 12:30 and 1 pm per the patient. He is thinking he would like to go to a short term SNF but still would like to discuss with his when she arrives.
--- NOTE | 2019-01-04 11:47 | NUR ---
patient referred to the [facility]. requires 3 night stay.
[2019-01-04 12:00] VITALS: BP 110/67
--- NOTE | 2019-01-04 12:00 | NUR ---
PT RESTING COMFORTABLE AT THIS TIME WITH NO COMPLAINTS. CALL LIGHT WITHIN REACH.
--- NOTE | 2019-01-04 13:00 | NUR ---
Head Char Filter Tank Tender in to see patient. His is at the bedside. Discussed short term SNF and both are agreeable. When provided with a list of facilities they [facility]. planner intern notified.
--- NOTE | 2019-01-04 14:01 | NUR ---
PHYSICAL THERAPY Physical therapy evaluation completed, 4E. Full details and evaluation to follow. Moderate complexity determined after evaluation and chart review, [id number]. PT to work on strength, endurance, balance, safety and gait. Recommending SNF at discharge. Thank you. Franchesca Anderson, PT, DPT
[2019-01-04 16:00] VITALS: BP 119/59
--- NOTE | 2019-01-04 16:29 | NUR ---
Nursing screen received and chart reviewed. Patient has had a 40 pound weight loss in a yr. If patient should have a decline in ADLs or functional mobility then refer to Occupational Therapy. Thank you. Sophia Aldridge OTR/L
[2019-01-04 20:00] VITALS: BP 151/58
[2019-01-05] VITALS (9 sets, daily range): BP systolic 89–147; BP diastolic 33–74
--- NOTE | 2019-01-05 10:30 | NUR ---
Grocery Sacker in to see patient. His is at the bedside. Discussed short term SNF and both remain agreeable. And would like to go [facility]. When medically stable he will be discharged to [facility]. search planner notified.
--- NOTE | 2019-01-05 10:30 | NUR ---
Tennis Professional in to see patient. His is at the bedside. Discussed short term SNF and both remain agreeable. And would like to go to [facility]. When medically stable he will be discharged to home. senior materials planner notified.
--- NOTE | 2019-01-05 10:44 | NUR ---
Patient has been accepted to [facility], hospital exemption complete. Patient requires 3 night stay. Can go tomorrow, 01/06/19 if medically stable for discharge.
--- NOTE | 2019-01-05 11:30 | NUR ---
PHYSICAL THERAPY Patient was out of his room this am for a medical procedure and unavilable at this time for therapy. Will continue per POC as able. Matt Gonzalez, PLASTERER SPRAY GUN
--- NOTE | 2019-01-05 23:19 | NUR ---
PATIENT REQUESTING KLONOPIN FOR COMPLAINTS OF ANXIETY. TAKES PILLS WHOLE IN APPLESAUCE. DENIES COMPLAINTS OF PAIN. SAYS HE WANTS TO GET A GOOD NIGHT'S SLEEP. PATIENT ON CLEAR LIQUID DIET AND WILL BE NPO AT MIDNIGHT FOR BARIUM ENEMA TOMORROW. STRAIGHT CATHS SELF WITHOUT DIFFICULTY. WILL CONTINUE TO MONITOR. CALL LIGHT IN REACH.
[2019-01-06] VITALS: BP 118/52
--- NOTE | 2019-01-06 00:44 | NUR ---
24 HR chart check completed.
--- NOTE | 2019-01-06 07:29 | NUR ---
Notified Dr. Beckwith if patient is medically stable she can be discharged to [facility] today as she has met her 3 night Medicare stay.
[2019-01-06 08:00] VITALS: BP 133/53
--- NOTE | 2019-01-06 09:10 | NUR ---
PHYSICAL THERAPY Patient was receiving patient care in bathroom this am when approached for therapy. Per discussion with Attendant, patient to be going down for medical procedure in a few minutes. Will continue per POC this pm as able. Matt Gonzalez, GEOLOGICAL SPECIALIST
--- NOTE | 2019-01-06 09:15 | NUR ---
Spoke with Guillermo in radiology regarding order for barium enema. States they do not do these for retained stool. I spoke with Dr. Mathews and he states reason for barium enema is tortuous colon and completion colonoscopy. Reentered order for barium enema with reason.
--- NOTE | 2019-01-06 10:00 | NUR ---
Pigment Grinder in to see patient. No new needs or request at this time. When medically stable he will be discharged to [facility]. milking worker following.
--- NOTE | 2019-01-06 10:30 | NUR ---
Discussed discharge planning with Dr. Beckwith. Dr. Mathews is still working patient up for GI.
--- NOTE | 2019-01-06 10:40 | NUR ---
Called radiology regarding when they will do barium enema for pt. Spoke with Keena who states that Guillermo is doing barium enema right now on another pt and she will haver Guillermo call me with that information when she is available.
--- NOTE | 2019-01-06 11:15 | NUR ---
Spoke with Guillermo in radiology. States they will be taking pt sometime after lunch.
--- NOTE | 2019-01-06 11:22 | NUR ---
Transport here to take pt off floor for barium enema.
[2019-01-06 12:00] VITALS: BP 135/67
--- NOTE | 2019-01-06 14:05 | NUR ---
PHYSICAL THERAPY Patient was eating a late lunch with his present following am medical procedure. Will continue per POC as able. Matt Gonzalez, SUPERVISOR BLAST FURNACE
--- NOTE | 2019-01-06 15:34 | NUR ---
Pt complained of itching to chest and rt arm. Area is pink warm and dry without any rash or broken skin. States that he thinks it is the soap we use here. States that he had a benedryl the other day for it but it just made him sleepy and the itching shortly returned. Requesting some kind of ointment or cream like cortisone. I spoke with Dr. Tavarez regarding pt statements and new orders received.
[2019-01-06 16:00] VITALS: BP 119/54
[2019-01-06 20:00] VITALS: BP 119/54
[2019-01-07] VITALS: BP 109/58
[2019-01-07 08:00] VITALS: BP 94/52
--- NOTE | 2019-01-07 08:30 | NUR ---
Dr. Mathews called in and was updated on pt.
--- NOTE | 2019-01-07 08:30 | NUR ---
Jack Machine Operator in to see patient. No new needs or request at this time. When medically stable he will be discharged to [facility]. workers compensation paralegal following.
--- NOTE | 2019-01-07 10:30 | NUR ---
PHYSICAL THERAPY PT SUPINE IN BED UPON ARRIVAL. PT AGREED TO ALL PHYSICAL THERAPY TREATMENT THIS VISIT. PT PERFORMED SUPINE TO SITTING EOB WITH SBE AND VC'S FOR SAFETY. PT PERFORMED STS FROM EOB WITH FWW WITH CGA. PT GAIT TRAINED 35FT X1 WITH FWW AND Tr/CGA WITH VC'S FOR POSTURE AND HEEL TOE GAIT PATTERN. PT PERFORMED STS TO EOB WITH VC'S FOR SAFETY. PT PERFORMED STS FROM EOB TO FWW WITH CGA. PT GAIT TRAINED 30FT X4 WITH FWW Tr/CGA WITH VC'S FOR SAFETY WITH WALKER, POSTURE AND BREATHING. PT STS TO EOB WITH CGA. PT PERFORMED SIT TO SUPINE WITH CGA/SBA. PT SUPINE IN BED WITH BED ALARM ON AND CALL LIGHT IN HAND AT END OF TREATMENT. PT SEEN 1:1 FOR 15MIN. SALMA YOUNG PTA
--- NOTE | 2019-01-07 11:16 | NUR ---
GLASS INSTALLER TECHNICIAN faxed updates to Zainab -JUDY Nugent
--- NOTE | 2019-01-07 11:36 | NUR ---
Message left for Dr. Mathews regarding discharge from GI standpoint. Awaiting return call.
--- NOTE | 2019-01-07 11:43 | NUR ---
Spoke to Dr. Beckwith regarding discharge planning. Dr. Beckwith did speak to Dr. Mathews. Plans is to discharge patient today to [facility]. electroplating worker following.
--- NOTE | 2019-01-07 11:55 | NUR ---
Spoke with pt in presence of pt. Notified of plan for discharge to [facility].
[2019-01-07 12:00] VITALS: BP 117/55
[2019-01-07] MEDS ORDERED: DIVALPROEX SOD250 M1 PO (12:13)
[2019-01-07] MEDS ORDERED: PRISTIQ50 MG PO (12:13)
--- NOTE | 2019-01-07 12:35 | NUR ---
WHARF OPERATOR spoke with Linda about discharge. WHARF OPERATOR spoke with patients who stated she would transport the patient to [facility] after her and the patient have Lunch together. WHARF OPERATOR notified Nery-JONI and will fax discharge orders. -JUDY Nugent
--- NOTE | 2019-01-07 13:43 | NUR ---
Report called to Ariela at [facility].
--- NOTE | 2019-01-07 15:25 | NUR ---
Dc to [facility] in care of via private car. Packet for SNF staff given to pt . DC via wheelchair with assist of PA.
--- NOTE | 2019-01-07 16:01 | NUR ---
PHYSICAL THERAPY CO-SIGN I approve of the Physical Therapy notes written above. SREEDHAR MADISON
== END 2019-01-07 15:25 | disposition other institution (70) | DRG 392 ==
LOC: ED 12:36 → EDHOLD 14:26 → 4E 14:26
PROVIDERS: Emergency Medicine; ADMIT Internal Medicine
PROC: 0DB68ZX Excision of Stomach, Via Natural or Artificial Opening Endoscopic, Diagnostic (ICD-10-PCS; principal; 2019-01-05)
PROC: 0D758ZZ Dilation of Esophagus, Via Natural or Artificial Opening Endoscopic (ICD-10-PCS; principal; 2019-01-05)
PROC: 0DJD8ZZ Inspection of Lower Intestinal Tract, Via Natural or Artificial Opening Endoscopic (ICD-10-PCS; principal; 2019-01-05)
DX: K22.2 Esophageal obstruction (principal); R64 Cachexia; Z68.1 Body mass index [BMI] 19.9 or less, adult; K59.09 Other constipation; E86.0 Dehydration; N40.1 Benign prostatic hyperplasia with lower urinary tract symptoms; R62.7 Adult failure to thrive; N18.3 Chronic kidney disease, stage 3 (moderate); I71.4 Abdominal aortic aneurysm, without rupture; R33.8 Other retention of urine; F31.9 Bipolar disorder, unspecified; F41.1 Generalized anxiety disorder; I13.10 Hypertensive heart and chronic kidney disease without heart failure, with stage 1 through stage 4 chronic kidney disease, or unspecified chronic kidney disease; K29.60 Other gastritis without bleeding; I35.0 Nonrheumatic aortic (valve) stenosis; Z88.8 Allergy status to other drugs, medicaments and biological substances; Z79.82 Long term (current) use of aspirin; Z79.899 Other long term (current) drug therapy

== ENCOUNTER → 2020-01-16 | Outpatient (CLI) | payer OTHER ==
[~2020-01-16] MED LIST changes: +BUPROPION HYDR150 M4 PO; +CENTRUM MEN'S1 EACH PO; +CLONAZEPAM0.5 M1 PO; +DIVALPROEX SOD250 M1 PO; +FLUOXETINE HYDR20 M1 PO; +PRISTIQ50 MG PO
[2020-01-16 09:25] LABS: BASO % 0.8 % (0.0-1.0); EOS # 0.6 10*3/uL (0.0-0.4); HEMATOCRIT 36.9 % (42.0-52.0); LYMPH # 1.4 10*3/uL (1.3-4.4); LYMPH % 27.2 % (27.0-41.0); MEAN CELL VOLUME 95.6 fl (80.0-94.0); MEAN CORPUSCULAR HGB 30.6 pg (27.0-31.0); MEAN PLATELET VOLUME 9.4 fl (9.6-12.3); MONO # 0.4 10*3/uL (0.1-1.0); MONO % 8.3 % (3.0-9.0); NEUT # 2.7 10*3/uL (2.3-7.9); NEUT % 52.5 % (47.0-73.0); PLATELET COUNT AUTOMATED 212 10*3/uL (130-400); RED BLOOD COUNT 3.86 10*6/uL (4.50-5.90); RED CELL DISTRI WIDTH 13.2 % (0-14.5); WHITE BLOOD COUNT 5.1 10*3/uL (4.8-10.8)
[2020-01-16 09:39] LABS: ALBUMIN 3.4 gm/dl (3.1-4.5); ALKALINE PHOSPHATASE 119 U/L (45-117); BUN 25 mg/dl (7-24); CHLORIDE 107 mmol/L (98-107); CHOLESTEROL 135 mg/dL (<200); CREATININE 1.13 mg/dL (0.70-1.30); HDL CHOLESTEROL 42 mg/dl (40-60); LDL CHOLESTEROL 74 mg/dL (9-159); POTASSIUM 4.6 mmol/L (3.5-5.1); SGOT/AST 13 IU/L (3-35); SGPT/ALT 15 U/L (12-78); SODIUM 142 mmol/L (136-145); TOTAL PROTEIN 7.8 gm/dL (6.4-8.2); TRIGLYCERIDES 94 mg/dl (<150); VLDL CHOLESTEROL 19 mg/dL (6-40)
[2020-01-16 09:57] LABS: VITAMIN D, 25-HYDROXY 84.9 ng/mL (30-100)
== END | disposition home or self-care (01) ==
LOC: LAB 08:31
PROVIDERS: ATTEND Internal Medicine
DX: I10 Essential (primary) hypertension (principal); M19.011 Primary osteoarthritis, right shoulder; K22.0 Achalasia of cardia; R70.0 Elevated erythrocyte sedimentation rate; R79.82 Elevated C-reactive protein (CRP); R79.89 Other specified abnormal findings of blood chemistry; M06.9 Rheumatoid arthritis, unspecified; R53.81 Other malaise; E55.9 Vitamin D deficiency, unspecified

== ENCOUNTER → 2020-08-16 | Outpatient (CLI) | payer OTHER | END | disposition home or self-care (01) | LOC: CARD 14:40 | PROVIDERS: ATTEND Internal Medicine Cardiovascular Disease | DX: I08.2 Rheumatic disorders of both aortic and tricuspid valves (principal); I10 Essential (primary) hypertension; I42.8 Other cardiomyopathies; I31.3 Pericardial effusion (noninflammatory); J90 Pleural effusion, not elsewhere classified ==

== ENCOUNTER 2020-09-20 11:39 | Inpatient (IN) | payer OTHER ==
[2020-09-20] VITALS (7 sets, daily range): BP systolic 97–148; BP diastolic 48–62
[~2020-09-20] VITALS: Ht 170.1 cm; Wt 64.5 kg
[~2020-09-20 11:39] MED LIST changes: -CLONAZEPAM0.5 M1 PO; -PRAVACHOL40 MG PO; +PRAVASTATIN SOD40 MG PO; +VITAMIN D325 MCG PO
[2020-09-20 12:06] LABS: BASO % 0.3 % (0.0-1.0); EOS # 0.3 10*3/uL (0.0-0.4); EOS % 2.2 % (1.0-4.0); HEMATOCRIT 34.8 % (42.0-52.0); LYMPH # 0.8 10*3/uL (1.3-4.4); LYMPH % 5.2 % (27.0-41.0); MEAN CELL VOLUME 95.1 fl (80.0-94.0); MEAN CORPUSCULAR HGB 31.1 pg (27.0-31.0); MEAN CORPUSCULAR HGB CONC 32.8 g/dl (33.0-37.0); MEAN PLATELET VOLUME 9.4 fl (9.6-12.3); MONO # 0.9 10*3/uL (0.1-1.0); MONO % 5.9 % (3.0-9.0); NEUT # 13.1 10*3/uL (2.3-7.9); PLATELET COUNT AUTOMATED 234 10*3/uL (130-400); RED BLOOD COUNT 3.66 10*6/uL (4.50-5.90); RED CELL DISTRI WIDTH 12.3 % (0-14.5); WHITE BLOOD COUNT 15.2 10*3/uL (4.8-10.8)
[2020-09-20 12:22] LABS: ALBUMIN 3.3 gm/dl (3.1-4.5); ALKALINE PHOSPHATASE 107 U/L (45-117); BUN 32 mg/dl (7-24); CHLORIDE 107 mmol/L (98-107); CREATININE 1.18 mg/dL (0.70-1.30); POTASSIUM 4.3 mmol/L (3.5-5.1); SGOT/AST 11 IU/L (3-35); SGPT/ALT 14 U/L (12-78); SODIUM 133 mmol/L (136-145); TOTAL PROTEIN 7.8 gm/dL (6.4-8.2)
[2020-09-20 12:25] LABS: TROPONIN I < 0.015 ng/ml (<0.045)
[2020-09-20] MEDS ORDERED: DESVENLAFAXINE100 M3 PO (14:23)
[2020-09-20] MEDS ORDERED: ZYPREXA10 M1 PO (14:29)
[2020-09-20] MEDS ORDERED: COLACE100 MG PO (14:40)
[2020-09-20] MEDS ORDERED: MELATONIN10 M2 PO (15:34)
[2020-09-20 21:57] LABS: BILIRUBIN Negative (Negative); BLOOD Negative (Negative); CLARITY Clear (Clear); COLOR Yellow (Yellow); GLUCOSE Negative (Negative); KETONE Negative (Negative); LEUKO ESTERASE 1+ (Negative); NITRITE Positive (Negative); UROBILINOGEN 0.2 E.U./dl (0.0-1.0)
[2020-09-20 22:08] LABS: BACTERIA 3+
[2020-09-20 22:09] LABS: WBC 21-30 wbc/hpf (0-5)
[2020-09-21] VITALS: BP 94/48
[2020-09-21] MEDS ORDERED: CEFUROXIME AXE250 MG PO (06:15)
[2020-09-21 08:00] VITALS: BP 100/57
== END 2020-09-21 14:38 | disposition home or self-care (01) | DRG 206 ==
LOC: ED 11:39 → EDHOLD 13:17 → 5E 13:17
PROVIDERS: Student in an Organized Health Care Education/Training Program; ADMIT Internal Medicine; ATTEND Internal Medicine
PROC: 4A02XM4 Measurement of Cardiac Total Activity, External Approach (ICD-10-PCS; principal; 2020-09-21)
PROC: 3E073KZ Introduction of Other Diagnostic Substance into Coronary Artery, Percutaneous Approach (ICD-10-PCS; 2020-09-21)
DX: M94.0 Chondrocostal junction syndrome [Tietze] (principal); N17.9 Acute kidney failure, unspecified; R07.81 Pleurodynia; I12.9 Hypertensive chronic kidney disease with stage 1 through stage 4 chronic kidney disease, or unspecified chronic kidney disease; I35.0 Nonrheumatic aortic (valve) stenosis; E86.0 Dehydration; R26.2 Difficulty in walking, not elsewhere classified; R53.1 Weakness; R62.7 Adult failure to thrive; R13.10 Dysphagia, unspecified; F31.9 Bipolar disorder, unspecified; I25.10 Atherosclerotic heart disease of native coronary artery without angina pectoris; D72.829 Elevated white blood cell count, unspecified; N18.30 Chronic kidney disease, stage 3 unspecified; N40.0 Benign prostatic hyperplasia without lower urinary tract symptoms; Z87.440 Personal history of urinary (tract) infections; Z88.2 Allergy status to sulfonamides; Z88.8 Allergy status to other drugs, medicaments and biological substances; Z68.22 Body mass index [BMI] 22.0-22.9, adult

== ENCOUNTER → 2021-09-09 | Outpatient (CLI) | payer OTHER ==
[~2021-09-09] MED LIST changes: +CEFUROXIME AXE250 MG PO; +COLACE100 MG PO; +DESVENLAFAXINE100 M3 PO; +MELATONIN10 M2 PO; +ZYPREXA10 M1 PO
== END | disposition home or self-care (01) ==
LOC: CT 12:49
PROVIDERS: ATTEND Internal Medicine
DX: J44.9 Chronic obstructive pulmonary disease, unspecified (principal); R91.8 Other nonspecific abnormal finding of lung field; I25.10 Atherosclerotic heart disease of native coronary artery without angina pectoris; I34.8 Other nonrheumatic mitral valve disorders

== ENCOUNTER → 2021-12-12 | Outpatient (CLI) | payer OTHER ==
[2021-12-12 08:22] LABS: BASO % 0.7 % (0.0-1.0); EOS # 0.5 10*3/uL (0.0-0.4); EOS % 8.6 % (1.0-4.0); HEMATOCRIT 34.3 % (42.0-52.0); LYMPH # 1.6 10*3/uL (1.3-4.4); LYMPH % 28.4 % (27.0-41.0); MEAN CELL VOLUME 95.8 fl (80.0-94.0); MEAN CORPUSCULAR HGB CONC 32.4 g/dl (33.0-37.0); MEAN PLATELET VOLUME 9.4 fl (9.6-12.3); MONO # 0.5 10*3/uL (0.1-1.0); MONO % 8.6 % (3.0-9.0); NEUT % 53.3 % (47.0-73.0); PLATELET COUNT AUTOMATED 179 10*3/uL (130-400); RED BLOOD COUNT 3.58 10*6/uL (4.50-5.90); RED CELL DISTRI WIDTH 12.4 % (0-14.5); WHITE BLOOD COUNT 5.6 10*3/uL (4.8-10.8)
[2021-12-12 08:39] LABS: ALKALINE PHOSPHATASE 115 U/L (45-117); BUN 26 mg/dl (7-24); CHLORIDE 106 mmol/L (98-107); CHOLESTEROL 108 mg/dL (<200); CREATININE 1.11 mg/dL (0.70-1.30); FREE T4 0.96 ng/dl (0.76-1.46); LDL CHOLESTEROL 56 mg/dL (9-159); POTASSIUM 4.7 mmol/L (3.5-5.1); SGOT/AST 12 IU/L (3-35); SGPT/ALT 17 U/L (12-78); SODIUM 140 mmol/L (136-145); TOTAL PROTEIN 7.3 gm/dL (6.4-8.2); TRIGLYCERIDES 51 mg/dl (<150)
[2021-12-12 08:44] LABS: T3 UPTAKE 35 % (31-39)
[2021-12-12 09:51] LABS: VITAMIN D, 25-HYDROXY 83.2 ng/mL (30-100)
== END | disposition home or self-care (01) ==
LOC: LAB 07:52
PROVIDERS: ATTEND Internal Medicine
DX: Z13.89 Encounter for screening for other disorder (principal); Z13.1 Encounter for screening for diabetes mellitus; Z13.29 Encounter for screening for other suspected endocrine disorder; E55.9 Vitamin D deficiency, unspecified; Z13.0 Encounter for screening for diseases of the blood and blood-forming organs and certain disorders involving the immune mechanism; Z13.21 Encounter for screening for nutritional disorder; Z13.220 Encounter for screening for lipoid disorders; Z13.228 Encounter for screening for other metabolic disorders; Z13.6 Encounter for screening for cardiovascular disorders; Z13.9 Encounter for screening, unspecified

== ENCOUNTER → 2022-02-10 | Outpatient (CLI) | payer OTHER | END | disposition home or self-care (01) | LOC: CARD 02-06 13:00 | PROVIDERS: ATTEND Internal Medicine | DX: I08.0 Rheumatic disorders of both mitral and aortic valves (principal); I11.9 Hypertensive heart disease without heart failure ==

== ENCOUNTER → 2022-08-19 | Outpatient (CLI) | payer OTHER | END | disposition home or self-care (01) | LOC: LAB 12:35 | PROVIDERS: ATTEND Urology | DX: N40.1 Benign prostatic hyperplasia with lower urinary tract symptoms (principal); N20.0 Calculus of kidney; M16.0 Bilateral primary osteoarthritis of hip; M47.816 Spondylosis without myelopathy or radiculopathy, lumbar region ==

== ENCOUNTER → 2022-09-26 | Outpatient (CLI) | payer OTHER ==
[2022-09-26 09:42] LABS: BASO % 0.7 % (0.0-1.0); EOS # 0.5 10*3/uL (0.0-0.4); EOS % 10.8 % (1.0-4.0); HEMATOCRIT 34.4 % (42.0-52.0); LYMPH # 1.1 10*3/uL (1.3-4.4); LYMPH % 25.2 % (27.0-41.0); MEAN CELL VOLUME 96.1 fl (80.0-94.0); MEAN CORPUSCULAR HGB 31.8 pg (27.0-31.0); MEAN CORPUSCULAR HGB CONC 33.1 g/dl (33.0-37.0); MEAN PLATELET VOLUME 9.9 fl (9.6-12.3); MONO # 0.4 10*3/uL (0.1-1.0); MONO % 8.7 % (3.0-9.0); NEUT # 2.4 10*3/uL (2.3-7.9); NEUT % 54.4 % (47.0-73.0); PLATELET COUNT AUTOMATED 182 10*3/uL (130-400); RED BLOOD COUNT 3.58 10*6/uL (4.50-5.90); RED CELL DISTRI WIDTH 12.5 % (0-14.5); WHITE BLOOD COUNT 4.4 10*3/uL (4.8-10.8)
[2022-09-26 10:21] LABS: VITAMIN D, 25-HYDROXY 90.4 ng/mL (30-100)
[2022-09-26 10:22] LABS: ALKALINE PHOSPHATASE 103 U/L (46-116); BUN 25 mg/dl (9-23); CHLORIDE 106 mmol/L (98-107); CHOLESTEROL 118 mg/dL (<200); FREE T4 0.85 ng/dl (0.89-1.76); LDL CHOLESTEROL 66 mg/dL (9-159); POTASSIUM 4.4 mmol/L (3.4-5.1); SGPT/ALT 10 U/L (10-49); THYROID STIM HORMONE (HS) 2.594 uIU/ml (0.550-4.780); TOTAL PROTEIN 7.2 gm/dL (6.0-8.0); TRIGLYCERIDES 55 mg/dl (<150)
== END | disposition home or self-care (01) ==
LOC: LAB 08:50
PROVIDERS: ATTEND Internal Medicine
DX: I10 Essential (primary) hypertension (principal); E03.9 Hypothyroidism, unspecified; E55.9 Vitamin D deficiency, unspecified; R53.83 Other fatigue; E78.2 Mixed hyperlipidemia; F31.30 Bipolar disorder, current episode depressed, mild or moderate severity, unspecified; F90.9 Attention-deficit hyperactivity disorder, unspecified type

== ENCOUNTER → 2023-01-01 | Outpatient (CLI) | payer MEDICARE ==
[2023-01-01 13:44] LABS: BUN 26 mg/dl (9-23); CHLORIDE 104 mmol/L (98-107); POTASSIUM 4.6 mmol/L (3.4-5.1)
== END | disposition home or self-care (01) ==
LOC: LAB 13:03
PROVIDERS: ATTEND Internal Medicine
DX: Z13.0 Encounter for screening for diseases of the blood and blood-forming organs and certain disorders involving the immune mechanism (principal); Z13.21 Encounter for screening for nutritional disorder; Z13.220 Encounter for screening for lipoid disorders; Z13.228 Encounter for screening for other metabolic disorders; Z13.29 Encounter for screening for other suspected endocrine disorder; Z13.6 Encounter for screening for cardiovascular disorders; Z13.89 Encounter for screening for other disorder; Z13.9 Encounter for screening, unspecified; I10 Essential (primary) hypertension; F31.30 Bipolar disorder, current episode depressed, mild or moderate severity, unspecified; F33.2 Major depressive disorder, recurrent severe without psychotic features; F90.9 Attention-deficit hyperactivity disorder, unspecified type

== ENCOUNTER → 2024-01-12 | Outpatient (CLI) | payer MEDICARE | END | disposition home or self-care (01) | LOC: CARD 01-05 15:00 | PROVIDERS: ATTEND Internal Medicine Cardiovascular Disease | DX: I08.0 Rheumatic disorders of both mitral and aortic valves (principal); I42.8 Other cardiomyopathies ==

== ENCOUNTER → 2024-04-05 | Outpatient (CLI) | payer OTHER ==
[2024-04-05 14:25] LABS: HEMATOCRIT 36.2 % (42.0-52.0)
[2024-04-05 15:11] LABS: BUN 38 mg/dl (9-23); CHLORIDE 102 mmol/L (98-107); POTASSIUM 5.1 mmol/L (3.4-5.1); VITAMIN D, 25-HYDROXY 87.8 ng/mL (30-100)
[2024-04-05 15:47] LABS: BILIRUBIN Negative (Negative); BLOOD Negative (Negative); CLARITY Clear (Clear); COLOR Yellow (Yellow); GLUCOSE 2+ (Negative); KETONE Negative (Negative); LEUKO ESTERASE 3+ (Negative); NITRITE Negative (Negative); SPECIFIC GRAVITY 1.015 (1.001-1.030); UROBILINOGEN 0.2 E.U./dl (0.0-1.0)
[2024-04-05 15:52] LABS: BACTERIA 2+; WBC 41-50 wbc/hpf (0-5)
== END | disposition home or self-care (01) ==
LOC: LAB 13:57
PROVIDERS: ATTEND Internal Medicine
DX: I12.9 Hypertensive chronic kidney disease with stage 1 through stage 4 chronic kidney disease, or unspecified chronic kidney disease (principal); N18.9 Chronic kidney disease, unspecified; E55.9 Vitamin D deficiency, unspecified; N25.81 Secondary hyperparathyroidism of renal origin; D64.9 Anemia, unspecified; D63.1 Anemia in chronic kidney disease

== ENCOUNTER → 2024-05-30 | Outpatient (CLI) | payer OTHER ==
[2024-05-30 08:59] LABS: BASO % 0.5 % (0.0-1.0); EOS # 0.4 10*3/uL (0.0-0.4); EOS % 10.1 % (1.0-4.0); HEMATOCRIT 37.8 % (42.0-52.0); MEAN CELL VOLUME 96.7 fl (80.0-94.0); MEAN CORPUSCULAR HGB 29.9 pg (27.0-31.0); MEAN PLATELET VOLUME 9.8 fl (9.6-12.3); MONO # 0.4 10*3/uL (0.1-1.0); MONO % 8.6 % (3.0-9.0); NEUT # 1.9 10*3/uL (2.3-7.9); NEUT % 46.5 % (47.0-73.0); PLATELET COUNT AUTOMATED 190 10*3/uL (130-400); RED BLOOD COUNT 3.91 10*6/uL (4.50-5.90); RED CELL DISTRI WIDTH 14.2 % (0-14.5); WHITE BLOOD COUNT 4.2 10*3/uL (4.8-10.8)
[2024-05-30 09:46] LABS: ALKALINE PHOSPHATASE 100 U/L (46-116); BUN 39 mg/dl (9-23); CHLORIDE 100 mmol/L (98-107); CHOLESTEROL 131 mg/dL (<200); FREE T4 1.13 ng/dl (0.89-1.76); LDL CHOLESTEROL 72 mg/dL (9-159); SGPT/ALT 12 U/L (5-49); TOTAL PROTEIN 8.1 gm/dL (6.0-8.0); TRIGLYCERIDES 68 mg/dl (<150)
== END | disposition home or self-care (01) ==
LOC: LAB 08:37
PROVIDERS: ATTEND Internal Medicine
DX: I12.9 Hypertensive chronic kidney disease with stage 1 through stage 4 chronic kidney disease, or unspecified chronic kidney disease (principal); N18.31 Chronic kidney disease, stage 3a; R53.83 Other fatigue; E53.9 Vitamin B deficiency, unspecified; E55.9 Vitamin D deficiency, unspecified